=== PATIENT | male | born 1955 | race Caucasian/White ===

== ENCOUNTER 2021-05-10 16:44 | Inpatient (IN) | payer BC, SELFPAY ==
[2021-05-10] VITALS (7 sets, daily range): BP systolic 107–120; BP diastolic 69–76; PULSE 59–85; RESP 20–22; TEMP 36.9–37.9; O2SAT 89–94
--- NOTE | ~2021-05-10 | XR_ITS ---
EXAMINATION: XR chest 1V portable DATE: 05/10/2021 17:20 INDICATION: COVID-19 pneumonia. TECHNIQUE: A single frontal view of the chest was obtained. COMPARISON: Chest single view 12/17/2007 FINDINGS: There are patchy airspace opacities in all lung zones bilaterally. No pleural effusion or p neumothorax. The heart size is normal. IMPRESSION: 1. Diffuse lung disease, consistent with COVID-19 pneumonia. Reviewed, dictated and finalized at location A.
--- NOTE | ~2021-05-10 | CT_ITS ---
EXAMINATION: CTA chest PE protocol EXAM DATE: 05/17/2021 12:49 INDICATION: Shortness of breath. COVID. TECHNIQUE: Spiral CTA of the chest (pulmonary arteries) was performed with 100 cc Omnipaque 350 intr avenous contrast injection. Images were acquired during the pulmonary arterial phase. Coronal maxi mum intensity projection 3D-reconstructions were created by the technologist on dedicated workstation . Axial, coronal and sagittal reformatted images were reviewed. The dose-length product (DLP) for t his examination was 943.95 mGy-cm. The exposure was tailored according to patient size (auto mA exp osure control), and iterative reconstruction (ASIR) was used as additional dose reduction technique. Correlation is made to chest x-ray 05/05/2013. FINDINGS: Pulmonary arteries are well opacified and without intraluminal filling defects. No thora cic aortic dissection. Diffuse bilateral airspace disease, groundglass opacity and also regions of c onfluence, appearance is consistent with acute to subacute COVID pneumonia. There are no pleural or pericardial effusions. Tracheobronchial tree is patent. There is no mediastinal, hilar or axillar y lymphadenopathy. There is no pneumothorax. Heart normal in size. No evidence of coronary lainey rial calcification. Upper abdomen is unremarkable. Patient has diffuse idiopathic skeletal hyperos tosis (DISH). IMPRESSION: 1. Diffuse airspace disease consistent with acute to subacute COVID pneumonia. 2. No pulmonary emboli. Reviewed, dictated and finalized at location B.
--- NOTE | ~2021-05-10 | XR_ITS ---
EXAMINATION: XR chest 1V portable EXAM DATE: 05/15/2021 05:42 INDICATION: Shortness of breath. TECHNIQUE: Portable AP frontal chest x-ray was obtained. Comparison is made to prior examination from 05/10/2021. FINDINGS: Progression of moderate amount of airspace disease, appearance is consistent with COVID pne umonia. No pneumothorax or pleural effusion. Cardiomediastinal silhouette is normal. Cardiomediastina l silhouette is normal. Some air-filled colon below the diaphragm. Thoracic spondylosis. IMPRESSION: 1. Diffuse COVID pneumonia. Reviewed, dictated and finalized at location A. IMPRESSION: 1. Diffuse COVID pneumonia.
--- NOTE | 2021-05-10 16:48 | ECG_ITS ---
Measurements Intervals [place] Rate: 72 P: 49 [place]: 157 QRS: -18 QRSD: 94 T: 6 QT: 395 QTc: 433 Interpretive Statements SINUS RHYTHM DELAYED PRECORDIAL R/S TRANSITION NONSPECIFIC T-WAVE ABNORMALITY- INFERIOR LEADS BASELINE ARTIFACT- I, II, III, AVR, AVL, AVF, V3 BORDERLINE ECG Electronically Signed On 05-11-2021 5:18:05 CDT by Jason Mejia D.O.
--- NOTE | 2021-05-10 16:51 | ED.GENADULT ---
HPI - General Adult General Chief complaint: Weakness Stated complaint: WEAKNESS, COUGH, COVID +~9 DAYS AGO Time Seen by Provider: 05/10/21 16:47 Source: patient History of Present Illness HPI narrative: Patient is a 65 y/o male complaining SOB, weakness, nausea and diarrhea for several days. Movement seems to make his symptoms worse. He has no fever or chest pain. He tested positive for COVID 8 days ago. Related Data Home Medications Medication Instructions Recorded Confirmed Dialyvite Vitamin D 1 cap PO DAILY 05/10/21 05/10/21 amlodipine 5 mg PO DAILY 05/10/21 05/11/21 ascorbic acid (vitamin C) 500 mg PO DAILY 05/10/21 05/11/21 folic acid 400 mcg PO DAILY 05/10/21 05/10/21 lisinopril-hydrochlorothiazide 1 tablet PO DAILY 05/10/21 05/10/21 Allergies Allergy/AdvReac Type Severity Reaction Status Date / Time No Known Allergies Allergy Mild Verified 05/10/21 16:48 Review of Systems Constitutional: Constitutional: Denies chills, Denies fever(s), Denies headache(s) and Reports weakness Eyes: Eyes: Denies blurry vision ENT: Denies headache(s) and Denies neck pain Cardiovascular: Cardiovascular: Denies chest pain and Denies dyspnea Respiratory: Respiratory: Reports cough and Reports dyspnea Gastrointestinal: Gastrointestinal: Denies abdominal pain, Reports diarrhea, Reports nausea and Denies vomiting Genitourinary: Genitourinary: Denies hematuria and Denies dysuria Musculoskeletal: Musculoskeletal: Denies back pain and Denies neck pain Neurologic: Denies headache(s) and Denies weakness FORMERLY [facility], 1928–1983 Past Medical History Medical History (Updated 05/11/21 @ 16:34 by Gemma Bhardwaj MD) Hypertension Obstructive sleep apnea Surgical History Surgical History (Updated 05/10/21 @ 23:21 by Lolis Tirado PA-C) History of inguinal hernia repair Family History Family History (Updated 05/10/21 @ 23:21 by Lolis Tirado PA-C) Other Hypertension Social History Social History (Updated 05/10/21 @ 23:22 by Lolis Tirado PA-C) Social History: The patient is and lives with his in [place]. They have grown children without significant medical problems. 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 Lifelong nonsmoker. No alcohol or illicit substance abuse. He designates his , Fadumo Sevilla, as his surrogate decision maker and he wishes to be a full code. Exam Const: General: no acute distress and well developed Orientation/consciousness: oriented to person, oriented to place, oriented to time and patient oriented x3 HENMT: Head: normocephalic Ears: external ears normal General nose exam: Normal external nose present Eyes: General: appearance normal, both eyes and all related structures Conjunctivae: conjunctivae normal Neck: Neck: normal visual inspection and full ROM Chest: Chest palpation & inspection: normal inspection of the chest and no tenderness Resp: Effort & Inspection: normal respiratory effort Auscultation: clear to auscultation bilaterally Cardio: Rate: regular rate Rhythm: regular rhythm GI: GI Palp: No abdominal tenderness and Yes Soft to palpation Skin: General skin exam: normal color and turgor normal Neuro: General: oriented to person, oriented to place, oriented to time and patient oriented x3 Cognition (Neuro): normal cognition Extrem: General: normal to inspection, full ROM and no pedal edema Psych: Appearance: grossly normal Mental Status: mental status grossly normal Affect: normal affect Course Consultations Consultation #1: Discussed with KERRI Danielle, who agrees to admit. Date: 05/10/21 Time: 17:45 Vital Signs Vital signs: Vital Signs Temperature 37.9 C H 05/10/21 16:44 Pulse Rate 70 05/10/21 16:44 Respiratory Rate 22 H 05/10/21 16:44 Blood Pressure 115/76 05/10/21 16:44 Pulse Oximetry 89 L 05/10/21 16:44 Temperature 37.1 C 05/11/21 16:00 Pulse Rate 87 05/11/21 16:00 Respiratory Rate 16 05/11/21 16:00
[2021-05-10 17:03] LABS: Basophils Percent Auto 0.2 % (0.2-1.2); Hematocrit 41.6 % (42.0-52.0); Hemoglobin 14.7 g/dL (14.0-18.0); Immature Granulocyte Absolute 0.02 K/mm3 (0.00-0.031); Immature Granulocyte Percent A 0.3 % (0-0.5); Lymphocytes Absolute Auto 0.85 K/mm3 (0.9-3.2); Lymphocytes Percent Auto 12.9 % (18.3-44.2); Mean Corpuscular HGB Conc 35.3 g/dl (32-36); Mean Corpuscular Hemoglobin 30.9 pg (26-34); Mean Corpuscular Volume 87.4 fl (80-100); Mean Platelet Volume 12.3 fl (7.4-10.4); Monocytes Absolute Auto 0.5 K/mm3 (0.1-0.6); Monocytes Percent Auto 7.1 % (2.6-8.5); Neutrophils Absolute Auto 5.2 K/mm3 (1.3-6.7); Neutrophils Percent Auto 79.5 % (45.5-73.1); Platelet Count Result 126 k/mm3 (150-375); Red Blood Count 4.76 M/mm3 (4.6-6.20); Red Cell Distribution Width 11.9 % (11.5-14.5); White Blood Count 6.6 K/mm3 (4.5-10.0)
[2021-05-10 17:10] LABS: Alanine Aminotransferase 24 U/L (4-50); Albumin Level 3.8 g/dL (3.5-5.1); Alkaline Phosphatase 72 U/L (38-126); Anion Gap 8 mmol/L (8-16); Aspartate Amino Transferase 53 U/L (17-59); Bilirubin,Total 1.2 mg/dL (0.2-1.3); Blood Urea Nitrogen 23 mg/dL (9-20); Calcium 8.3 mg/dL (8.4-10.2); Carbon Dioxide 23 mmol/L (22-30); Chloride 100 mmol/L (98-107); Estimated CRCL calculation 75 ml/min; Estimated Glomerular Filt Rate > 60; Glucose 132 mg/dL (65-110); Sodium 131 mmol/L (137-145)
[2021-05-10] MEDS: DEXAMETHASONE SOD PHOS INJ 4 MG/ML VIAL 6 MG IV PUSH (17:27)
[2021-05-10] MEDS: SODIUM CHLORIDE 0.9% IV 1,000 ML 999 ML IV CONT (17:27)
[2021-05-10] MEDS: ONDANSETRON INJ 4 MG/2 ML VIAL IV PUSH (17:27)
--- NOTE | 2021-05-10 17:38 | PC.NURSE ---
Spoke with Calixto Sevilla 9(son) to give update. [phone]
[2021-05-10 17:49] LABS: Prothrombin Time 12.7 Seconds (11.1-14.7)
[2021-05-10] MEDS: REMDESIVIR 200 MG/NS 250 ML 200 MG/250 ML BAG 250 MG IVPB (18:50)
[2021-05-10 19:40] LABS: Add Urine Microscopic? YES; Appearance Urine Clear (Clear); Bacteria Urine Trace /hpf; Bilirubin Urine Negative (Negative); Blood Urine 1+ (Negative); Color Urine Yellow (Yellow); Glucose Urine UA Negative (Negative); Ketones Urine Negative (Negative); Leukocyte Esterase Ur Negative LEU/UL (Negative); Mucus Urine Rare /lpf; Nitrate Urine Negative (Negative); Protein Urine 2+ mg/dL (Negative); RBC Urine 0-2 /hpf (0-2); Specific Grav Ur 1.021 (1.001-1.035); Squamous Epithelial Cell Urine Rare /hpf (Few); Urobilinogen Urine Negative mg/dL (<2.0); WBC Urine 0-3 /hpf
--- NOTE | 2021-05-10 20:30 | PM.IMHP ---
H&P: HPI History of Present Illness Date/Time: 05/10/21 20:30 <Lolis Tirado PA-C - Last Filed: 05/10/21 23:30> Chief Complaint: COVID positive, weak, diarrhea. <Lolis Tirado PA-C - Last Filed: 05/10/21 23:30> Narrative: This is a pleasant 65-year-old male with hypertension who presented to the emergency department earlier today via private vehicle from home for evaluation of weakness and diarrhea, the patient is COVID positive. He tested positive for COVID 19 on 05/03/2021 and has had symptoms to include fever, body aches, nausea with poor oral intake, diarrhea, mild cough, and shortness of breath. The last couple of days he has felt quite weak due to ongoing diarrhea and poor oral intake due to severe nausea. On arrival to the emergency department he was mildly hypoxic with an SpO2 of 89% on room air and his chest x-ray showed diffuse lung disease consistent with COVID pneumonia. He is being admitted in this setting. At the time my evaluation he reports feeling somewhat better with oxygen and IV fluids. He continues to have low-grade fevers. No hyposmia or dysgeusia, otalgia, odynophagia, chest pain, pleuritic pain, or vomiting. He did not receive a COVID vaccination. <Lolis Tirado PA-C - Last Filed: 05/10/21 23:30> Review of Systems Review of Systems: Twelve systems were reviewed with pertinent positives and negatives as per HPI. Except as documented, all other systems were reviewed and are negative. <Lolis Tirado PA-C - Last Filed: 05/10/21 23:30> [facility] Past Medical History Medical History: Medical History (Updated 05/11/21 @ 16:34 by Gemma Bhardwaj MD) Hypertension Obstructive sleep apnea <Lolis Tirado PA-C - Last Filed: 05/10/21 23:30> Surgical History Surgical History: Surgical History (Updated 05/10/21 @ 23:21 by Lolis Tirado PA-C) History of inguinal hernia repair <Lolis Tirado PA-C - Last Filed: 05/10/21 23:30> Family History Family History: Family History (Updated 05/10/21 @ 23:21 by Lolis Tirado PA-C) Other Hypertension <Lolis Tirado PA-C - Last Filed: 05/10/21 23:30> Social History Social History: Social History (Updated 05/10/21 @ 23:22 by Lolis Tirado PA-C) Social History: The patient is and lives with his in [place]. They have grown children without significant medical problems. 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 Lifelong nonsmoker. No alcohol or illicit substance abuse. He designates his , Fadumo Sevilla, as his surrogate decision maker and he wishes to be a full code. Spiritual care concerns: No <Lolis Tirado PA-C - Last Filed: 05/10/21 23:30> Meds Home Medications and Allergies Home medications: Home Medications Medication Instructions Recorded Confirmed Type Dialyvite Vitamin D 1 cap PO DAILY 05/10/21 05/10/21 History amlodipine 5 mg PO DAILY 05/10/21 05/11/21 History ascorbic acid (vitamin C) 500 mg PO DAILY 05/10/21 05/11/21 History folic acid 400 mcg PO DAILY 05/10/21 05/10/21 History lisinopril-hydrochlorothiazide 1 tablet PO DAILY 05/10/21 05/10/21 History <Lolis Tirado PA-C - Last Filed: 05/10/21 23:30> Allergies/Adverse reactions: Allergies Allergy/AdvReac Type Severity Reaction Status Date / Time No Known Allergies Allergy Mild Verified 05/10/21 16:48 <Lolis Tirado PA-C - Last Filed: 05/10/21 23:30> Vital Signs Vital Signs - 24 hr 05/10/21 16:44 05/10/21 17:00 05/10/21 17:29 Temperature 100.2 F H Pulse Rate 70 66 Respiratory Rate 22 H 20 Blood Pressure 115/76 109/75 Pulse Oximetry 89 L 94 94 05/10/21 18:00 05/10/21 19:19 05/10/21 20:00 Temperature 98.5 F Pulse Rate 67 85 61 Respiratory Rate 20 20 20 Blood Pressure 110/69 107/73 120/75 Pulse Oximetry 93 92 93 <Lolis Tirado PA-C - Last Filed: 05/10/21 23:30> Exam Narrative: General: Well-developed, mild
[2021-05-11] VITALS (19 sets, daily range): BP systolic 105–123; BP diastolic 63–74; PULSE 49–87; RESP 14–24; TEMP 36.3–37.3; O2SAT 88–93
[2021-05-11] MEDS: SODIUM CHLORIDE 0.9% IV 1,000 ML 100 ML IV CONT (00:33)
[2021-05-11 06:51] LABS: Hematocrit 39.8 % (42.0-52.0); Hemoglobin 13.7 g/dL (14.0-18.0); Mean Corpuscular HGB Conc 34.4 g/dl (32-36); Mean Corpuscular Hemoglobin 31.1 pg (26-34); Mean Corpuscular Volume 90.2 fl (80-100); Mean Platelet Volume 12.5 fl (7.4-10.4); Platelet Count Result 113 k/mm3 (150-375); Red Blood Count 4.41 M/mm3 (4.6-6.20); Red Cell Distribution Width 12.1 % (11.5-14.5)
[2021-05-11 07:07] LABS: Alanine Aminotransferase 22 U/L (4-50); Albumin Level 3.4 g/dL (3.5-5.1); Alkaline Phosphatase 57 U/L (38-126); Anion Gap 6 mmol/L (8-16); Aspartate Amino Transferase 45 U/L (17-59); Blood Urea Nitrogen 24 mg/dL (9-20); CRP 5.9 mg/dL (<1.0); Carbon Dioxide 24 mmol/L (22-30); Chloride 101 mmol/L (98-107); Estimated CRCL calculation 89 ml/min; Estimated Glomerular Filt Rate > 60; Glucose 147 mg/dL (65-110); Lactate Dehydrogenase 881 U/L (313-618); Potassium 4.2 mmol/L (3.4-5.0); Sodium 131 mmol/L (137-145)
--- NOTE | 2021-05-11 07:29 | ADMGEN ---
This patient, Erasmo Sevilla, was admitted to 3 Med Surg Room 325-01. Patient/family oriented to hospital policies and general routines including ID bracelet, bed and alarms, visiting hours, pain management, procedures, bathroom and other care routines, personal items, smoking policy, room service/diet, and visiting hours. Information on how to activate the Rapid Response Team has been discussed. Patient/Family are encouraged to report perceived risks to care and to ask questions if they do not understand what they are told or what they should do. Patient stated medication from his memory. He was assisted from his bed the first time he went to the . Though he tolerated activity well, he did c/o SOB. We discussed medications and the use of antivirals. He appeared to be a good historian when discussing medical hx. All current treatments, tests, and medications were discussed.
[2021-05-11] MEDS: ALBUTEROL SULFATE NEB 2.5 MG/0.5 ML INH 5 MG INHALATION ×3 (08:54→21:44)
[2021-05-11] MEDS: ENOXAPARIN 40 MG/0.4 ML SYRINGE SUB-Q (10:52)
[2021-05-11] MEDS: amLODIPine BESYLATE 5 MG TABLET PO (10:53)
[2021-05-11] MEDS: guaiFENesin 12 HR 600 MG TABCR PO ×2 (10:53→19:49)
[2021-05-11] MEDS: FOLIC ACID 0.4 MG TABLET PO (10:53)
[2021-05-11] MEDS: DEXAMETHASONE SOD PHOS INJ 4 MG/ML VIAL 6 MG IV PUSH (10:53)
[2021-05-11] MEDS: LOPERAMIDE HCL 2 MG CAPSULE PO (10:53)
[2021-05-11] MEDS: lisinopriL 20 MG TABLET PO (10:54)
[2021-05-11] MEDS: ASCORBIC ACID 500 MG TABLET PO (10:54)
[2021-05-11] MEDS: ONDANSETRON INJ 4 MG/2 ML VIAL IV PUSH (11:22)
--- NOTE | 2021-05-11 15:51 | PM.IMPN ---
Progress Note: A&P Assessment and Plan (1) Pneumonia due to COVID-19 virus: Code(s): U07.1 - COVID-19; J12.82 - Pneumonia due to coronavirus disease 2019 Status: Acute Assessment and Plan: Continue remdesivir and dexamethasone Oxygen by nasal cannula, wean as tolerated (2) Hypoxia: Code(s): R09.02 - Hypoxemia Status: Acute Assessment and Plan: Mild hypoxia secondary to diffuse pneumonia on chest x-ray. Pulmonary embolism less likely by history, Wells score is 0. Wean oxygen as tolerated. (3) Hypertension: Code(s): I10 - Essential (primary) hypertension Status: Acute Assessment and Plan: Blood pressures were reviewed and they are stable. Thiazide diuretic on hold at this time as he is a bit dry. Continue to monitor. (4) Obstructive sleep apnea: Code(s): G47.33 - Obstructive sleep apnea (adult) (pediatric) Status: Acute Assessment and Plan: CPAP will be provided for the patient to use while hospitalized. Additional Plan Noted he has some trouble sleeping, and this is a problem at home as well. Has tried Benadryl does not work. Will try zolpidem tonight. Time Spent With Patient Time with patient: less than 15 minutes Subjective Date/time seen: 05/11/21 15:51 Resting comfortably in a chair. No chest pain. Continues to have shortness of breath, requiring oxygen even while sitting down. Review of Systems Review of Systems: All systems reviewed & are unremarkable except as noted in HPI and below Exam Const: General: no acute distress Neck: Neck: no JVD Resp: Other: Some crackles in all lung flor Cardio: Rate: regular rate Rhythm: regular rhythm GI: GI Palp: Yes Soft to palpation and No Tenderness to palpation present (GI) Objective Data Vital Signs Vital Signs: Vital Signs - 24 hr 05/10/21 16:44 05/10/21 17:00 05/10/21 17:29 Temperature 100.2 F H Pulse Rate 70 66 Respiratory Rate 22 H 20 Blood Pressure 115/76 109/75 Pulse Oximetry 89 L 94 94 05/10/21 18:00 05/10/21 19:19 05/10/21 20:00 Temperature 98.5 F Pulse Rate 67 85 61 Respiratory Rate 20 20 20 Blood Pressure 110/69 107/73 120/75 Pulse Oximetry 93 92 93 05/10/21 23:58 05/11/21 00:00 05/11/21 03:00 Temperature 97.8 F Pulse Rate 59 L 60 60 Respiratory Rate 20 Blood Pressure 105/66 Pulse Oximetry 93 05/11/21 04:00 05/11/21 08:00 05/11/21 08:06 Temperature 97.4 F L 98.3 F Pulse Rate 59 L 58 L 49 L Respiratory Rate 20 16 Blood Pressure 111/67 123/63 Pulse Oximetry 93 90 05/11/21 08:54 05/11/21 09:06 05/11/21 09:51 Temperature Pulse Rate 61 66 Respiratory Rate 20 20 Blood Pressure Pulse Oximetry 88 L 88 L 93 05/11/21 12:00 05/11/21 15:07 05/11/21 15:20 Temperature 99.1 F Pulse Rate 66 67 70 Respiratory Rate 14 20 24 H Blood Pressure 119/74 Pulse Oximetry 90 Intake/Output Intake/Output: Intake & Output 05/08/21 05/09/21 05/10/21 05/11/21 23:59 23:59 23:59 23:59 Intake Total 1250 1290 Balance 1250 1290 Meds/Results Medications: Active Medications Generic Name Dose Route Start Last Admin Trade Name Freq PRN Reason Stop Dose Admin Albuterol 5 mg 05/11/21 02:00 05/11/21 15:06 Albuterol Sulfate Neb 2.5 Mg/0.5 Ml Inh INHALATION 5 mg Q6HRT SYDNEY Administration Amlodipine Besylate 5 mg 05/11/21 09:00 05/11/21 10:53 Amlodipine Besylate 5 Mg Tablet PO 5 mg DAILY SYDNEY Administration Ascorbic Acid 500 mg 05/11/21 09:00 05/11/21 10:54 Ascorbic Acid 500 Mg Tablet PO 06/10/21 08:59 500 mg DAILY SYDNEY Administration Dexamethasone Sodium Phosphate 6 mg 05/11/21 09:00 05/11/21 10:53 Dexamethasone Sod Phos Inj 4 Mg/Ml Vial IV PUSH 05/20/21 09:01 6 mg DAILY SYDNEY Administration Enoxaparin Sodium 40 mg 05/11/21 09:00 05/11/21 10:52 Enoxaparin 40 Mg/0.4 Ml Syringe SUB-Q 40 mg DAILY SYDNEY Administration Folic Acid 0.4 mg 05/11/21 09:00 0
[2021-05-11] MEDS: REMDESIVIR 100 MG/NS 250 ML 100 MG/250 ML BAG 250 MG IVPB (19:49)
[2021-05-12] VITALS (15 sets, daily range): BP systolic 122–133; BP diastolic 64–78; PULSE 61–107; RESP 15–22; TEMP 35.8–37.1; O2SAT 90–95
[2021-05-12] MEDS: ALBUTEROL SULFATE NEB 2.5 MG/0.5 ML INH 5 MG INHALATION ×4 (03:51→14:07)
[2021-05-12 06:57] LABS: Hematocrit 37.4 % (42.0-52.0); Hemoglobin 12.6 g/dL (14.0-18.0); Immature Granulocyte Absolute 0.02 K/mm3 (0.00-0.031); Immature Granulocyte Percent A 0.3 % (0-0.5); Lymphocytes Absolute Auto 0.41 K/mm3 (0.9-3.2); Lymphocytes Percent Auto 6.8 % (18.3-44.2); Mean Corpuscular HGB Conc 33.7 g/dl (32-36); Mean Corpuscular Hemoglobin 30.2 pg (26-34); Mean Corpuscular Volume 89.7 fl (80-100); Mean Platelet Volume 11.9 fl (7.4-10.4); Monocytes Absolute Auto 0.7 K/mm3 (0.1-0.6); Monocytes Percent Auto 10.9 % (2.6-8.5); Platelet Count Result 141 k/mm3 (150-375); Red Blood Count 4.17 M/mm3 (4.6-6.20); Red Cell Distribution Width 12.1 % (11.5-14.5); White Blood Count 6.1 K/mm3 (4.5-10.0)
[2021-05-12 07:07] LABS: Prothrombin Time 13.2 Seconds (11.1-14.7)
[2021-05-12 07:17] LABS: Alanine Aminotransferase 24 U/L (4-50); Albumin Level 3.3 g/dL (3.5-5.1); Alkaline Phosphatase 57 U/L (38-126); Anion Gap 9 mmol/L (8-16); Aspartate Amino Transferase 46 U/L (17-59); Bilirubin,Total 0.9 mg/dL (0.2-1.3); Blood Urea Nitrogen 30 mg/dL (9-20); Calcium 8.3 mg/dL (8.4-10.2); Carbon Dioxide 22 mmol/L (22-30); Chloride 103 mmol/L (98-107); Estimated CRCL calculation 81 ml/min; Estimated Glomerular Filt Rate > 60; Glucose 163 mg/dL (65-110); Magnesium 2.2 mg/dL (1.6-2.3); Phosphorus 4.3 mg/dL (2.5-4.5); Potassium 3.7 mmol/L (3.4-5.0); Sodium 134 mmol/L (137-145)
[2021-05-12] MEDS: LOPERAMIDE HCL 2 MG CAPSULE PO (09:48)
[2021-05-12] MEDS: guaiFENesin 12 HR 600 MG TABCR PO ×2 (09:48→20:15)
[2021-05-12] MEDS: lisinopriL 20 MG TABLET PO (09:48)
[2021-05-12] MEDS: FOLIC ACID 0.4 MG TABLET PO (09:49)
[2021-05-12] MEDS: DEXAMETHASONE SOD PHOS INJ 4 MG/ML VIAL 6 MG IV PUSH (09:49)
[2021-05-12] MEDS: amLODIPine BESYLATE 5 MG TABLET PO (09:49)
[2021-05-12] MEDS: ENOXAPARIN 40 MG/0.4 ML SYRINGE SUB-Q (09:49)
[2021-05-12] MEDS: ASCORBIC ACID 500 MG TABLET PO (09:49)
--- NOTE | 2021-05-12 12:46 | PM.IMPN ---
Progress Note: A&P Assessment and Plan (1) Pneumonia due to COVID-19 virus: Code(s): U07.1 - COVID-19; J12.82 - Pneumonia due to coronavirus disease 2019 Status: Acute Assessment and Plan: Continue remdesivir and dexamethasone Oxygen by nasal cannula, wean as tolerated Went up from 5 to 6 L, discussed with him next step would be high-flow nasal cannula also discussed this we followed by BiPAP, which he is okay with, and this would be followed by intubation, which he will discuss with his before making a decision about. (2) Hypoxia: Code(s): R09.02 - Hypoxemia Status: Acute Assessment and Plan: Mild hypoxia secondary to diffuse pneumonia on chest x-ray. Pulmonary embolism less likely by history, Wells score is 0. Wean oxygen as tolerated. (3) Hypertension: Code(s): I10 - Essential (primary) hypertension Status: Acute Assessment and Plan: Blood pressures were reviewed and they are stable. Thiazide diuretic on hold at this time as he is a bit dry. Continue to monitor. (4) Obstructive sleep apnea: Code(s): G47.33 - Obstructive sleep apnea (adult) (pediatric) Status: Acute Assessment and Plan: CPAP will be provided for the patient to use while hospitalized. Additional Plan Discussed COVID course with patient, feels like he has taken a step back in the last day, as he is now requiring 6 L compared to 5 L yesterday. Still no fever, cough, chest pain. Discussed next step in oxygen supplementation would be high flow, which he is open to. Also encouraged patient to consider and discuss with option of mechanical ventilation if that need arises. For the time being will keep full code. Time Spent With Patient Time with patient: less than 15 minutes Subjective Date/time seen: 05/12/21 12:46 According to patient, feels like he has taken a step back over the last day. Although he has no chest pain or shortness of breath at rest, after walking around he becomes winded, and then needs to go up from 5 to 6 L to feel better. No cough, fever or chills. Review of Systems Review of Systems: All systems reviewed & are unremarkable except as noted in HPI and below Exam Const: General: no acute distress Neck: Neck: no JVD Resp: Effort & Inspection: normal respiratory effort Auscultation: clear to auscultation bilaterally Cardio: Rate: regular rate Rhythm: regular rhythm GI: GI Palp: Yes Soft to palpation and No Tenderness to palpation present (GI) Objective Data Vital Signs Vital Signs: Vital Signs - 24 hr 05/11/21 14:00 05/11/21 15:07 05/11/21 15:20 Temperature Pulse Rate 65 67 70 Respiratory Rate 20 24 H Blood Pressure Pulse Oximetry 05/11/21 16:00 05/11/21 18:11 05/11/21 20:00 Temperature 98.8 F 98.6 F Pulse Rate 87 74 63 Respiratory Rate 16 22 H Blood Pressure 119/66 115/73 Pulse Oximetry 90 92 05/11/21 21:44 05/11/21 21:45 05/11/21 22:00 Temperature Pulse Rate 65 64 59 L Respiratory Rate 22 H Blood Pressure Pulse Oximetry 92 05/11/21 22:07 05/12/21 00:00 05/12/21 02:00 Temperature 98.3 F Pulse Rate 63 107 H 67 Respiratory Rate 20 20 Blood Pressure 125/78 Pulse Oximetry 95 05/12/21 03:03 05/12/21 04:00 05/12/21 08:00 Temperature 98.8 F 96.5 F L Pulse Rate 62 75 64 Respiratory Rate 20 22 H 18 Blood Pressure 129/64 122/70 Pulse Oximetry 91 90 05/12/21 08:16 05/12/21 08:26 05/12/21 11:55 Temperature 96.7 F L Pulse Rate 68 68 72 Respiratory Rate 20 20 16 Blood Pressure 129/72 Pulse Oximetry 91 93 Intake/Output Intake/Output: Intake & Output 05/09/21 05/10/21 05/11/21 05/12/21 23:59 23:59 23:59 23:59 Intake Total 1250 2184 390 Balance 1250 2184 390 Meds/Results Medications: Active Medications Generic Name Dose Route Start Last Admin Trade Name Nimaq PRN Reason Stop Dose Admin Albuterol 5 mg 05/11/21 02:00 05/12/21 08:16
[2021-05-12] MEDS: REMDESIVIR 100 MG/NS 250 ML 100 MG/250 ML BAG 250 MG IVPB (20:16)
[2021-05-13] VITALS (20 sets, daily range): BP systolic 115–140; BP diastolic 59–87; PULSE 57–76; RESP 16–22; TEMP 35.8–36.8; O2SAT 83–96
[2021-05-13] MEDS: ALBUTEROL SULFATE (*SP) INHALER 2 PUFF INHALATION ×4 (03:27→20:39)
[2021-05-13 06:56] LABS: Basophils Percent Auto 0.1 % (0.2-1.2); Hematocrit 37.1 % (42.0-52.0); Hemoglobin 12.8 g/dL (14.0-18.0); Immature Granulocyte Absolute 0.04 K/mm3 (0.00-0.031); Immature Granulocyte Percent A 0.5 % (0-0.5); Lymphocytes Absolute Auto 0.65 K/mm3 (0.9-3.2); Lymphocytes Percent Auto 8.8 % (18.3-44.2); Mean Corpuscular HGB Conc 34.5 g/dl (32-36); Mean Corpuscular Hemoglobin 30.7 pg (26-34); Mean Platelet Volume 11.4 fl (7.4-10.4); Monocytes Absolute Auto 0.7 K/mm3 (0.1-0.6); Monocytes Percent Auto 9.1 % (2.6-8.5); Neutrophils Percent Auto 81.5 % (45.5-73.1); Platelet Count Result 172 k/mm3 (150-375); Red Blood Count 4.17 M/mm3 (4.6-6.20); Red Cell Distribution Width 12.1 % (11.5-14.5); White Blood Count 7.4 K/mm3 (4.5-10.0)
[2021-05-13 07:04] LABS: INR 1.1; Prothrombin Time 13.6 Seconds (11.1-14.7)
[2021-05-13 07:18] LABS: Alanine Aminotransferase 27 U/L (4-50); Albumin Level 3.5 g/dL (3.5-5.1); Alkaline Phosphatase 56 U/L (38-126); Anion Gap 6 mmol/L (8-16); Aspartate Amino Transferase 43 U/L (17-59); Bilirubin,Total 1.2 mg/dL (0.2-1.3); Blood Urea Nitrogen 29 mg/dL (9-20); Calcium 8.5 mg/dL (8.4-10.2); Carbon Dioxide 23 mmol/L (22-30); Chloride 104 mmol/L (98-107); Estimated CRCL calculation 89 ml/min; Estimated Glomerular Filt Rate > 60; Glucose 132 mg/dL (65-110); Magnesium 2.2 mg/dL (1.6-2.3); Phosphorus 4.1 mg/dL (2.5-4.5); Potassium 4.1 mmol/L (3.4-5.0); Sodium 133 mmol/L (137-145)
[2021-05-13] MEDS: FOLIC ACID 0.4 MG TABLET PO (08:38)
[2021-05-13] MEDS: guaiFENesin 12 HR 600 MG TABCR PO ×2 (08:38→20:32)
[2021-05-13] MEDS: lisinopriL 20 MG TABLET PO (08:39)
[2021-05-13] MEDS: amLODIPine BESYLATE 5 MG TABLET PO (08:39)
[2021-05-13] MEDS: ASCORBIC ACID 500 MG TABLET PO (08:39)
[2021-05-13] MEDS: DEXAMETHASONE SOD PHOS INJ 4 MG/ML VIAL 6 MG IV PUSH (08:40)
[2021-05-13] MEDS: ENOXAPARIN 40 MG/0.4 ML SYRINGE SUB-Q (08:40)
--- NOTE | 2021-05-13 09:03 | PM.IMPN ---
Progress Note: A&P Assessment and Plan (1) Pneumonia due to COVID-19 virus: Code(s): U07.1 - COVID-19; J12.82 - Pneumonia due to coronavirus disease 2019 Status: Acute Assessment and Plan: Continue remdesivir and dexamethasone Oxygen by nasal cannula, wean as tolerated Went up from 5 to 6 L, discussed with him next step would be high-flow nasal cannula also discussed this we followed by BiPAP, which he is okay with, and this would be followed by intubation, which he will discuss with his before making a decision about. Brief episode of desaaturation 05/13 am when patient over-exerted himself in room; Saturating mid 90s on 6L, encouraged to minimize exertion as much as possible. OK as he is on DVT ppx. Still discussing intubation if needed with family. As of now, still full code. (2) Hypoxia: Code(s): R09.02 - Hypoxemia Status: Acute Assessment and Plan: Mild hypoxia secondary to diffuse pneumonia on chest x-ray. Pulmonary embolism less likely by history, Wells score is 0. Wean oxygen as tolerated. (3) Hypertension: Code(s): I10 - Essential (primary) hypertension Status: Acute Assessment and Plan: Blood pressures were reviewed and they are stable. Thiazide diuretic on hold at this time as he is a bit dry. Continue to monitor. (4) Obstructive sleep apnea: Code(s): G47.33 - Obstructive sleep apnea (adult) (pediatric) Status: Acute Assessment and Plan: CPAP will be provided for the patient to use while hospitalized. Additional Plan Overall unchanged medical status compared to yesterday. Brief decompensation with overexertion, however saturating well and feeling comfortable on 6L. Still discussing intubation with if that need arises. Will keep full code for now, and he is willing for high flow NC and BiPap if those needs arise. Continue remdesivir and steroids, DVT ppx. Time Spent With Patient Time with patient: less than 15 minutes Subjective Date/time seen: 05/13/21 09:03 no subjective sob - did desaturate to mid 80s when walking around, however asymptomatic. Says he would like to do exercise, advised against this. Review of Systems Review of Systems: All systems reviewed & are unremarkable except as noted in HPI and below Exam Const: General: no acute distress Neck: Neck: no JVD Resp: Effort & Inspection: normal respiratory effort Auscultation: clear to auscultation bilaterally Cardio: Rate: regular rate Rhythm: regular rhythm GI: GI Palp: Yes Soft to palpation and No Tenderness to palpation present (GI) Objective Data Vital Signs Vital Signs: Vital Signs - 24 hr 05/12/21 11:55 05/12/21 12:00 05/12/21 14:07 Temperature 96.7 F L Pulse Rate 72 64 69 Respiratory Rate 16 20 Blood Pressure 129/72 Pulse Oximetry 93 05/12/21 14:15 05/12/21 16:00 05/12/21 20:00 Temperature 97.5 F L Pulse Rate 74 67 62 Respiratory Rate 20 22 H Blood Pressure 133/68 Pulse Oximetry 94 05/12/21 23:17 05/12/21 23:37 05/13/21 00:00 Temperature 97.3 F L Pulse Rate 61 63 57 L Respiratory Rate 15 20 Blood Pressure 119/73 Pulse Oximetry 95 91 94 05/13/21 03:32 05/13/21 04:00 05/13/21 07:30 Temperature 97.9 F Pulse Rate 62 63 Respiratory Rate 22 H 18 Blood Pressure 121/74 Pulse Oximetry 94 93 90 05/13/21 07:35 Temperature Pulse Rate Respiratory Rate Blood Pressure Pulse Oximetry 90 Intake/Output Intake/Output: Intake & Output 05/10/21 05/11/21 05/12/21 05/13/21 23:59 23:59 23:59 23:59 Intake Total 1250 2184 1490 450 Balance 1250 2184 1490 450 Meds/Results Medications: Active Medications Generic Name Dose Route Start Last Admin Trade Name Nimaq PRN Reason Stop Dose Admin Albuterol 2 puff 05/12/21 20:00 05/13/21 08:39 Albuterol Sulfate (*Sp) Inhaler INHALATION 2 puff Q6HRT SYDNEY Administration Amlodipine Besylate 5 mg 05/11/21 09:00 05/13/21 08:39 Amlodipi
[2021-05-13] MEDS: REMDESIVIR 100 MG/NS 250 ML 100 MG/250 ML BAG 250 MG IVPB (20:32)
[2021-05-14] VITALS (15 sets, daily range): BP systolic 108–143; BP diastolic 55–76; PULSE 54–75; RESP 20–32; TEMP 36–36.8; O2SAT 85–100; BMI 33.9
[2021-05-14] MEDS: ALBUTEROL SULFATE (*SP) INHALER 2 PUFF INHALATION ×4 (03:55→20:44)
--- NOTE | 2021-05-14 04:32 | PC.NURSE ---
This patient, Erasmo Sevilla, was transferred to [facility] on 05/14/21 at 0433 from [facility]. Personal belongings sent with patient. Report given to Chioma. Appropriate documentation sent with patient. Fadumo was informed of the change at 04:35.
--- NOTE | 2021-05-14 04:34 | PC.NURSE ---
This patient, Erasmo Sevilla, was received from [ 3rd med surg ] on 05/14/21 at 0434. Patient/family oriented to unit policies and routines
[2021-05-14 05:10] LABS: Alveolar/Arterial O2 Gradient 416.5 mmHg; Base Excess ABG -1.1 mEq/l (+/-2.0); Carboxyhemoglobin 0.3 % THb (0-2.0); Fractional Inspired Oxygen 72 %; HCO3 ABG 21.5 mEq/l (22.0-26.0); Methemoglobin ABG 0.3 %THb (0-1.5); Oxygen Content ABG 20.2 %vol (16.0-22.0); Oxygen Saturation ABG 93.9 % (95.0-100.0); Oxyhemoglobin 91.5 % THb (90.0-100.0); PCO2 ABG 30.5 mmHg (35.0-45.0); PO2 ABG 64.2 mmHg (80.0-100.0); PO2 FiO2 Ratio Arterial Blood 0.89 %; Reduced Hemoglobin 7.9 %THb (0-5.0); Total Hemoglobin 15.7 g/dL (12.0-18.0); pH ABG 7.465 (7.350-7.450)
[2021-05-14 05:12] LABS: Device HIGH FLOW THERAPY; Modified Allen's Test Pass; Site Drawn LEFT RADIAL
[2021-05-14 05:13] LABS: Basophils Percent Auto 0.1 % (0.2-1.2); Hematocrit 38.2 % (42.0-52.0); Hemoglobin 13.4 g/dL (14.0-18.0); Immature Granulocyte Absolute 0.07 K/mm3 (0.00-0.031); Immature Granulocyte Percent A 0.9 % (0-0.5); Lymphocytes Absolute Auto 0.69 K/mm3 (0.9-3.2); Lymphocytes Percent Auto 8.4 % (18.3-44.2); Mean Corpuscular HGB Conc 35.1 g/dl (32-36); Mean Corpuscular Hemoglobin 31.3 pg (26-34); Mean Corpuscular Volume 89.3 fl (80-100); Mean Platelet Volume 11.7 fl (7.4-10.4); Monocytes Absolute Auto 0.7 K/mm3 (0.1-0.6); Monocytes Percent Auto 8.6 % (2.6-8.5); Neutrophils Absolute Auto 6.7 K/mm3 (1.3-6.7); Platelet Count Result 225 k/mm3 (150-375); Red Blood Count 4.28 M/mm3 (4.6-6.20); Red Cell Distribution Width 11.9 % (11.5-14.5); White Blood Count 8.2 K/mm3 (4.5-10.0)
[2021-05-14 05:22] LABS: Prothrombin Time 13.4 Seconds (11.1-14.7)
[2021-05-14 05:25] LABS: Alanine Aminotransferase 33 U/L (4-50); Albumin Level 3.5 g/dL (3.5-5.1); Alkaline Phosphatase 61 U/L (38-126); Anion Gap 7 mmol/L (8-16); Aspartate Amino Transferase 43 U/L (17-59); Bilirubin,Total 1.4 mg/dL (0.2-1.3); Blood Urea Nitrogen 29 mg/dL (9-20); Calcium 8.5 mg/dL (8.4-10.2); Carbon Dioxide 20 mmol/L (22-30); Chloride 107 mmol/L (98-107); Estimated CRCL calculation 99 ml/min; Estimated Glomerular Filt Rate > 60; Glucose 129 mg/dL (65-110); Magnesium 2.3 mg/dL (1.6-2.3); Phosphorus 3.7 mg/dL (2.5-4.5); Potassium 3.9 mmol/L (3.4-5.0); Sodium 134 mmol/L (137-145)
[2021-05-14] MEDS: amLODIPine BESYLATE 5 MG TABLET PO (11:00)
[2021-05-14] MEDS: DEXAMETHASONE SOD PHOS INJ 4 MG/ML VIAL 6 MG IV PUSH (11:00)
[2021-05-14] MEDS: FOLIC ACID 0.4 MG TABLET PO (11:00)
[2021-05-14] MEDS: lisinopriL 20 MG TABLET PO (11:01)
[2021-05-14] MEDS: ENOXAPARIN 40 MG/0.4 ML SYRINGE SUB-Q (11:01)
[2021-05-14] MEDS: ASCORBIC ACID 500 MG TABLET PO (11:01)
[2021-05-14] MEDS: guaiFENesin 12 HR 600 MG TABCR PO ×2 (11:01→21:38)
--- NOTE | 2021-05-14 13:07 | PM.IMPN ---
Progress Note: A&P Assessment and Plan (1) Pneumonia due to COVID-19 virus: Code(s): U07.1 - COVID-19; J12.82 - Pneumonia due to coronavirus disease 2019 Status: Acute Assessment and Plan: Continue remdesivir and dexamethasone. (2) Hypoxia: Code(s): R09.02 - Hypoxemia Status: Acute Assessment and Plan: Mild hypoxia secondary to diffuse pneumonia on chest x-ray. Continue iv steroids and remdesivir and oxygen and supportive care. will order cxr tomorrow. (3) Hypertension: Code(s): I10 - Essential (primary) hypertension Status: Acute Assessment and Plan: Blood pressures were reviewed, Bp is stable. Continue to hold medications. (4) Obstructive sleep apnea: Code(s): G47.33 - Obstructive sleep apnea (adult) (pediatric) Status: Acute Assessment and Plan: CPAP will be provided for the patient to use while hospitalized. Subjective Date/time seen: 05/14/21 13:07 Interval history: 65-year-old male with hypertension, the patient is COVID positive. Started on remdesivir. Pt is coughing and sob in the room. Pt trying prone positions in the room. Review of Systems Review of Systems: All systems reviewed & are unremarkable except as noted in HPI and below Exam Const: General: no acute distress and other (Sitting up ) Resp: Effort & Inspection: normal respiratory effort Auscultation: clear to auscultation bilaterally Other: BL wheezes Cardio: Rate: regular rate Rhythm: regular rhythm Neuro: General: other (alert. oriented. ) Cognition (Neuro): normal cognition Objective Data Vital Signs Vital Signs: Vital Signs - 24 hr 05/13/21 14:58 05/13/21 16:00 05/13/21 20:00 Temperature 35.8 C L 36.4 C L Pulse Rate 72 68 Respiratory Rate 18 20 Blood Pressure 119/69 137/80 Pulse Oximetry 91 90 90 05/13/21 23:00 05/13/21 23:57 05/14/21 00:00 Temperature 36.6 C Pulse Rate 76 68 Respiratory Rate 20 Blood Pressure 115/79 Pulse Oximetry 92 94 05/14/21 04:00 05/14/21 04:45 05/14/21 04:48 Temperature 36.2 C L 36.8 C Pulse Rate 68 72 Respiratory Rate 20 22 H Blood Pressure 108/72 128/71 Pulse Oximetry 86 L 91 91 05/14/21 08:00 05/14/21 09:00 05/14/21 12:00 Temperature 36.7 C 36.0 C L Pulse Rate 66 66 Respiratory Rate 24 H 28 H Blood Pressure 143/76 H 118/68 Pulse Oximetry 92 91 95 Intake/Output Intake/Output: Intake & Output 05/11/21 05/12/21 05/13/21 05/14/21 23:59 23:59 23:59 23:59 Intake Total 2184 1740 1840 440 Balance 2184 1740 1840 440 Meds/Results Medications: Active Medications Generic Name Dose Route Start Last Admin Trade Name Freq PRN Reason Stop Dose Admin Albuterol 2 puff 05/12/21 20:00 05/14/21 09:02 Albuterol Sulfate (*Sp) Inhaler INHALATION 2 puff Q6HRT SYDNEY Administration Amlodipine Besylate 5 mg 05/11/21 09:00 05/14/21 11:00 Amlodipine Besylate 5 Mg Tablet PO 5 mg DAILY SYDNEY Administration Ascorbic Acid 500 mg 05/11/21 09:00 05/14/21 11:01 Ascorbic Acid 500 Mg Tablet PO 06/10/21 08:59 500 mg DAILY SYDNEY Administration Dexamethasone Sodium Phosphate 6 mg 05/11/21 09:00 05/14/21 11:00 Dexamethasone Sod Phos Inj 4 Mg/Ml Vial IV PUSH 05/20/21 09:01 6 mg DAILY SYDNEY Administration Enoxaparin Sodium 40 mg 05/11/21 09:00 05/14/21 11:01 Enoxaparin 40 Mg/0.4 Ml Syringe SUB-Q 40 mg DAILY SYDNEY Administration Folic Acid 0.4 mg 05/11/21 09:00 05/14/21 11:00 Folic Acid 0.4 Mg Tablet PO 0.4 mg DAILY SYDNEY Administration Guaifenesin 600 mg 05/11/21 09:00 05/14/21 11:01 Guaifenesin 12 Hr 600 Mg Tabcr PO 600 mg Q12HR SYDNEY Administration Remdesivir 100 mg in 250 mls @ 250 mls/hr 05/11/21 22:00 05/13/21 21:32 IVPB 05/14/21 22:59 Infused Q24H SYDNEY Infusion Lisinopril 20 mg 05/11/21 09:00 05/14/21 11:01 Lisinopril 20 Mg Tablet PO 20 mg QAM SYDNEY Administration Loperamide HCl 2 mg 05/10/21
[2021-05-14 13:54] LABS: CRP 2.4 mg/dL (<1.0)
[2021-05-14] MEDS: REMDESIVIR 100 MG/NS 250 ML 100 MG/250 ML BAG 250 MG IVPB (21:42)
[2021-05-15] VITALS (16 sets, daily range): BP systolic 121–160; BP diastolic 68–76; PULSE 48–88; RESP 17–32; TEMP 36.7–37.2; O2SAT 71–95
[2021-05-15] MEDS: ALBUTEROL SULFATE (*SP) INHALER 2 PUFF INHALATION ×3 (02:28→21:00)
[2021-05-15] MEDS: amLODIPine BESYLATE 5 MG TABLET PO (08:41)
[2021-05-15] MEDS: ASCORBIC ACID 500 MG TABLET PO (08:42)
[2021-05-15] MEDS: ENOXAPARIN 40 MG/0.4 ML SYRINGE SUB-Q (08:43)
[2021-05-15] MEDS: DEXAMETHASONE SOD PHOS INJ 4 MG/ML VIAL 6 MG IV PUSH (08:43)
[2021-05-15] MEDS: FOLIC ACID 0.4 MG TABLET PO (08:44)
[2021-05-15] MEDS: guaiFENesin 12 HR 600 MG TABCR PO ×2 (08:44→20:35)
[2021-05-15] MEDS: lisinopriL 20 MG TABLET PO (08:45)
--- NOTE | 2021-05-15 15:11 | PM.IMPN ---
Progress Note: A&P Assessment and Plan (1) Pneumonia due to COVID-19 virus: Code(s): U07.1 - COVID-19; J12.82 - Pneumonia due to coronavirus disease 2019 Status: Acute Assessment and Plan: Continue remdesivir and dexamethasone. CXR reviewed with patient. (2) Hypoxia: Code(s): R09.02 - Hypoxemia Status: Acute Assessment and Plan: Mild hypoxia secondary to diffuse pneumonia on chest x-ray. Continue iv steroids and remdesivir and oxygen and supportive care. (3) Hypertension: Code(s): I10 - Essential (primary) hypertension Status: Acute Assessment and Plan: Blood pressures were reviewed, Bp is slightly high can restart BP medications. (4) Obstructive sleep apnea: Code(s): G47.33 - Obstructive sleep apnea (adult) (pediatric) Status: Acute Assessment and Plan: CPAP will be provided for the patient to use while hospitalized. Subjective Date/time seen: 05/15/21 15:11 Interval history: 65-year-old male with hypertension, the patient is COVID positive. Started on remdesivir. Pt is sob in the room on high flow. Pt is sitting up in bed talkative and pleasant. Review of Systems Review of Systems: All systems reviewed & are unremarkable except as noted in HPI and below Exam Const: General: no acute distress and other (Sitting up on high flow oxygen) Resp: Effort & Inspection: normal respiratory effort Auscultation: clear to auscultation bilaterally Cardio: Rate: regular rate Rhythm: regular rhythm Neuro: General: other (alert. oriented. ) Cognition (Neuro): normal cognition Objective Data Vital Signs Vital Signs: Vital Signs - 24 hr 05/14/21 16:00 05/14/21 18:00 05/14/21 20:00 Temperature 36.8 C 36.6 C Pulse Rate 71 71 60 Respiratory Rate 32 H 22 H Blood Pressure 129/71 119/55 L Pulse Oximetry 85 L 100 05/14/21 20:45 05/14/21 22:00 05/14/21 23:40 Temperature 36.7 C Pulse Rate 61 57 L 63 Respiratory Rate 20 22 H Blood Pressure 126/66 Pulse Oximetry 92 92 05/15/21 00:00 05/15/21 02:00 05/15/21 02:29 Temperature Pulse Rate 68 65 51 L Respiratory Rate Blood Pressure Pulse Oximetry 92 71 L 05/15/21 04:00 05/15/21 05:13 05/15/21 06:00 Temperature 37.2 C Pulse Rate 59 L 64 61 Respiratory Rate 22 H 17 Blood Pressure 123/71 Pulse Oximetry 94 94 05/15/21 08:00 05/15/21 09:15 05/15/21 12:00 Temperature 37.0 C 36.8 C Pulse Rate 59 L 70 Respiratory Rate 27 H 30 H Blood Pressure 160/76 H 157/69 H Pulse Oximetry 95 92 92 05/15/21 14:35 Temperature Pulse Rate Respiratory Rate Blood Pressure Pulse Oximetry 94 Intake/Output Intake/Output: Intake & Output 05/12/21 05/13/21 05/14/21 05/15/21 23:59 23:59 23:59 23:59 Intake Total 1740 1840 690 490 Output Total 1350 350 Balance 1740 1840 -660 140 Meds/Results Medications: Active Medications Generic Name Dose Route Start Last Admin Trade Name Freq PRN Reason Stop Dose Admin Albuterol 2 puff 05/12/21 20:00 05/15/21 08:58 Albuterol Sulfate (*Sp) Inhaler INHALATION 2 puff Q6HRT SYDNEY Administration Amlodipine Besylate 5 mg 05/11/21 09:00 05/15/21 08:41 Amlodipine Besylate 5 Mg Tablet PO 5 mg DAILY SYDNEY Administration Ascorbic Acid 500 mg 05/11/21 09:00 05/15/21 08:42 Ascorbic Acid 500 Mg Tablet PO 06/10/21 08:59 500 mg DAILY SYDNEY Administration Dexamethasone Sodium Phosphate 6 mg 05/11/21 09:00 05/15/21 08:43 Dexamethasone Sod Phos Inj 4 Mg/Ml Vial IV PUSH 05/20/21 09:01 6 mg DAILY SYDNEY Administration Enoxaparin Sodium 40 mg 05/11/21 09:00 05/15/21 08:43 Enoxaparin 40 Mg/0.4 Ml Syringe SUB-Q 40 mg DAILY SYDNEY Administration Folic Acid 0.4 mg 05/11/21 09:00 05/15/21 08:44 Folic Acid 0.4 Mg Tablet PO 0.4 mg DAILY SYDNEY Administration Guaifenesin 600 mg 05/11/21 09:00 05/15/21 08:44 Guaifenesin 12 Hr 600 Mg Tabcr PO 600 mg Q12HR SYDNEY
[2021-05-16] VITALS (15 sets, daily range): BP systolic 109–133; BP diastolic 65–79; PULSE 56–81; RESP 18–32; TEMP 36.7–38.2; O2SAT 91–100
[2021-05-16] MEDS: ALBUTEROL SULFATE (*SP) INHALER 2 PUFF INHALATION ×4 (04:10→20:15)
[2021-05-16] MEDS: amLODIPine BESYLATE 5 MG TABLET PO (08:58)
[2021-05-16] MEDS: DEXAMETHASONE SOD PHOS INJ 4 MG/ML VIAL 6 MG IV PUSH (08:59)
[2021-05-16] MEDS: ASCORBIC ACID 500 MG TABLET PO (08:59)
[2021-05-16] MEDS: ENOXAPARIN 40 MG/0.4 ML SYRINGE SUB-Q (08:59)
[2021-05-16] MEDS: FOLIC ACID 0.4 MG TABLET PO (08:59)
[2021-05-16] MEDS: guaiFENesin 12 HR 600 MG TABCR PO ×2 (09:00→20:09)
[2021-05-16] MEDS: lisinopriL 20 MG TABLET PO (09:00)
[2021-05-16] MEDS: FUROSEMIDE 40 MG TABLET PO (09:00)
--- NOTE | 2021-05-16 10:24 | PM.IMPN ---
Progress Note: A&P Assessment and Plan (1) Pneumonia due to COVID-19 virus: Code(s): U07.1 - COVID-19; J12.82 - Pneumonia due to coronavirus disease 2019 Status: Acute Assessment and Plan: Continue remdesivir and dexamethasone. CXR reviewed with patient. (2) Hypoxia: Code(s): R09.02 - Hypoxemia Status: Acute Assessment and Plan: Mild hypoxia secondary to diffuse pneumonia on chest x-ray. Continue iv steroids and remdesivir and oxygen and supportive care. (3) Hypertension: Code(s): I10 - Essential (primary) hypertension Status: Acute Assessment and Plan: Blood pressures were reviewed, Bp is slightly high can restart BP medications. (4) Obstructive sleep apnea: Code(s): G47.33 - Obstructive sleep apnea (adult) (pediatric) Status: Acute Assessment and Plan: CPAP will be provided for the patient to use while hospitalized. Additional Plan 05/13/21 Continue remdesivir and dexamethasone Oxygen by nasal cannula, wean as tolerated Went up from 5 to 6 L, discussed with him next step would be high-flow nasal cannula also discussed this we followed by BiPAP, which he is okay with, and this would be followed by intubation, which he will discuss with his before making a decision about. Brief episode of desaaturation 05/13 am when patient over-exerted himself in room; Saturating mid 90s on 6L, encouraged to minimize exertion as much as possible. OK as he is on DVT ppx. Still discussing intubation if needed with family. As of now, still full code. Overall unchanged medical status compared to yesterday. Brief decompensation with overexertion, however saturating well and feeling comfortable on 6L. Still discussing intubation with if that need arises. Will keep full code for now, and he is willing for high flow NC and BiPap if those needs arise. Continue remdesivir and steroids, DVT ppx. 05/15/21 Overall unchanged medical status compared to yesterday. Brief decompensation with overexertion, however saturating well and feeling comfortable on 6L. Still discussing intubation with if that need arises. Will keep full code for now, and he is willing for high flow NC and BiPap if those needs arise. Continue remdesivir and steroids, DVT ppx. 05/16/21 Patient with acute worsening of oxygen requirements now on 60 L 93% Remdesivir Baricitinib Vitamin-C D zinc Dexamethasone b.i.d. High-flow oxygen Patient advised to prone Patient advised to drink Ensure drinks and maintain proper nutrition he is also advised against fast food Patient will discuss code status with his Subjective Date/time seen: 05/16/21 10:24 Medical records reviewed pt on 60L acutely worsening oxygen requirements. This has been reviewed with the patient as well as code status. Patient states that he would not want to be maintained on life support indefinitely but he would like to try. He will discuss with his giving her indications of how long or when she should discontinue full life support if that becomes necessary decision. Patient is advised that the cook frozen dessert physician will help guide her in her decision making and that we are outlined in our goals that we all want him to get better and go home. Exam Narrative: General: Well-developed, mildly ill-appearing male supine in bed HEENT: EOMI. Sclerae anicteric. NCAT Neck: Supple. No adenopathy or JVD. Respiratory: Respirations are even and nonlabored and he is speaking in full sentences. Currently on 60 L high-flow Scattered rales at the bases and rhonchi Cardiovascular: Regular rate and rhythm with S1-S2. Gastrointestinal: Abdomen is soft, nontender, and nondistended with positive bowel sounds. Skin: Warm and moist. Extremities: No cyanosis, clubbing, or edema. Radial and pedal pulses intact. Neurological: Alert. Cranial nerves 2-12 are grossly intact. No gross focal deficits to casual conversation. Psychiatric: Pl
[2021-05-16 11:35] LABS: Basophils Percent Auto 0.1 % (0.2-1.2); Eosinophils Absolute Auto 0.1 K/mm3 (0-0.3); Eosinophils Percent Auto 0.8 % (0-4.4); Hemoglobin 12.4 g/dL (14.0-18.0); Immature Granulocyte Percent A 1.7 % (0-0.5); Lymphocytes Absolute Auto 0.34 K/mm3 (0.9-3.2); Lymphocytes Percent Auto 2.9 % (18.3-44.2); Mean Corpuscular HGB Conc 34.4 g/dl (32-36); Mean Corpuscular Hemoglobin 31.2 pg (26-34); Mean Corpuscular Volume 90.5 fl (80-100); Mean Platelet Volume 11.2 fl (7.4-10.4); Monocytes Absolute Auto 0.4 K/mm3 (0.1-0.6); Monocytes Percent Auto 3.4 % (2.6-8.5); Neutrophils Absolute Auto 10.9 K/mm3 (1.3-6.7); Neutrophils Percent Auto 91.1 % (45.5-73.1); Platelet Count Result 246 k/mm3 (150-375); Red Blood Count 3.98 M/mm3 (4.6-6.20); Red Cell Distribution Width 11.9 % (11.5-14.5); White Blood Count 11.9 K/mm3 (4.5-10.0)
[2021-05-16 11:44] LABS: Alanine Aminotransferase 45 U/L (4-50); Estimated CRCL calculation 99 ml/min; Estimated Glomerular Filt Rate > 60
[2021-05-16 11:46] LABS: INR 1.2; Prothrombin Time 15.1 Seconds (11.1-14.7)
[2021-05-16] MEDS: BARICITINIB 2 MG TABLET 4 MG PO (13:03)
[2021-05-16] MEDS: REMDESIVIR 100 MG/NS 250 ML 100 MG/250 ML BAG 250 MG IVPB (15:10)
[2021-05-16] MEDS: ASCORBIC ACID 500 MG TABLET 1000 MG PO (18:29)
[2021-05-16] MEDS: ZINC SULFATE 220 MG CAPSULE PO (18:30)
[2021-05-17] VITALS (21 sets, daily range): BP systolic 101–131; BP diastolic 60–81; PULSE 71–90; RESP 18–24; TEMP 36.6–36.9; O2SAT 92–99; BMI 32.1
[2021-05-17] MEDS: ALBUTEROL SULFATE (*SP) INHALER 2 PUFF INHALATION ×3 (03:03→14:21)
[2021-05-17 05:14] LABS: Basophils Percent Auto 0.2 % (0.2-1.2); Eosinophils Percent Auto 0.1 % (0-4.4); Hematocrit 34.9 % (42.0-52.0); Hemoglobin 12.3 g/dL (14.0-18.0); Immature Granulocyte Absolute 0.36 K/mm3 (0.00-0.031); Immature Granulocyte Percent A 3.1 % (0-0.5); Lymphocytes Absolute Auto 0.49 K/mm3 (0.9-3.2); Lymphocytes Percent Auto 4.3 % (18.3-44.2); Mean Corpuscular HGB Conc 35.2 g/dl (32-36); Mean Corpuscular Volume 87.9 fl (80-100); Mean Platelet Volume 11.2 fl (7.4-10.4); Monocytes Absolute Auto 0.6 K/mm3 (0.1-0.6); Monocytes Percent Auto 4.9 % (2.6-8.5); Neutrophils Absolute Auto 10.1 K/mm3 (1.3-6.7); Neutrophils Percent Auto 87.4 % (45.5-73.1); Platelet Count Result 275 k/mm3 (150-375); Red Blood Count 3.97 M/mm3 (4.6-6.20); Red Cell Distribution Width 11.6 % (11.5-14.5); White Blood Count 11.5 K/mm3 (4.5-10.0)
[2021-05-17 05:24] LABS: INR 1.1; Prothrombin Time 14.1 Seconds (11.1-14.7)
[2021-05-17 05:30] LABS: Alanine Aminotransferase 43 U/L (4-50); Albumin Level 3.3 g/dL (3.5-5.1); Alkaline Phosphatase 71 U/L (38-126); Anion Gap 8 mmol/L (8-16); Aspartate Amino Transferase 29 U/L (17-59); Bilirubin,Total 1.1 mg/dL (0.2-1.3); Blood Urea Nitrogen 27 mg/dL (9-20); Calcium 8.4 mg/dL (8.4-10.2); Carbon Dioxide 24 mmol/L (22-30); Chloride 104 mmol/L (98-107); Estimated CRCL calculation 107 ml/min; Estimated Glomerular Filt Rate > 60; Glucose 157 mg/dL (65-110); Potassium 3.9 mmol/L (3.4-5.0); Sodium 136 mmol/L (137-145)
[2021-05-17 05:40] LABS: D Dimer 5.69 ug/mL (<0.48)
[2021-05-17 06:02] LABS: CRP 14.2 mg/dL (<1.0)
[2021-05-17] MEDS: ENOXAPARIN 40 MG/0.4 ML SYRINGE SUB-Q ×2 (09:40→20:32)
[2021-05-17] MEDS: REMDESIVIR 100 MG/NS 250 ML 100 MG/250 ML BAG 250 MG IVPB (09:40)
[2021-05-17] MEDS: amLODIPine BESYLATE 5 MG TABLET PO (09:41)
[2021-05-17] MEDS: guaiFENesin 12 HR 600 MG TABCR PO ×2 (09:41→20:32)
[2021-05-17] MEDS: ZINC SULFATE 220 MG CAPSULE PO ×2 (09:41→17:49)
[2021-05-17] MEDS: CHOLECALCIFEROL 1,000 UNITS TABLET 1000 UNITS PO (09:41)
[2021-05-17] MEDS: FUROSEMIDE 40 MG TABLET PO (09:41)
[2021-05-17] MEDS: FOLIC ACID 0.4 MG TABLET PO (09:42)
[2021-05-17] MEDS: BARICITINIB 2 MG TABLET 4 MG PO (09:42)
[2021-05-17] MEDS: lisinopriL 20 MG TABLET PO (09:42)
[2021-05-17] MEDS: ASCORBIC ACID 500 MG TABLET 1000 MG PO ×2 (09:42→17:49)
--- NOTE | 2021-05-17 17:37 | PM.IMPN ---
Progress Note: A&P Assessment and Plan (1) Pneumonia due to COVID-19 virus: Code(s): U07.1 - COVID-19; J12.82 - Pneumonia due to coronavirus disease 2019 Status: Acute Assessment and Plan: Continue remdesivir and dexamethasone. CXR reviewed with patient. Also added on baricitinib. CRP was improving but has now worsened continue monitor (2) Hypoxia: Code(s): R09.02 - Hypoxemia Status: Acute Assessment and Plan: Mild hypoxia secondary to diffuse pneumonia on chest x-ray. Continue iv steroids and remdesivir and oxygen and supportive care. Prone positioning With worsening since past [address] to rule out PE Increased Lovenox twice daily (3) Hypertension: Code(s): I10 - Essential (primary) hypertension Status: Acute Assessment and Plan: Blood pressures were reviewed, Bp is slightly high can restart BP medications. (4) Obstructive sleep apnea: Code(s): G47.33 - Obstructive sleep apnea (adult) (pediatric) Status: Acute Assessment and Plan: CPAP will be provided for the patient to use while hospitalized. Additional Plan 05/13/21 Continue remdesivir and dexamethasone Oxygen by nasal cannula, wean as tolerated Went up from 5 to 6 L, discussed with him next step would be high-flow nasal cannula also discussed this we followed by BiPAP, which he is okay with, and this would be followed by intubation, which he will discuss with his before making a decision about. Brief episode of desaaturation 9/9 am when patient over-exerted himself in room; Saturating mid 90s on 6L, encouraged to minimize exertion as much as possible. OK as he is on DVT ppx. Still discussing intubation if needed with family. As of now, still full code. Overall unchanged medical status compared to yesterday. Brief decompensation with overexertion, however saturating well and feeling comfortable on 6L. Still discussing intubation with if that need arises. Will keep full code for now, and he is willing for high flow NC and BiPap if those needs arise. Continue remdesivir and steroids, DVT ppx. 05/15/21 Overall unchanged medical status compared to yesterday. Brief decompensation with overexertion, however saturating well and feeling comfortable on 6L. Still discussing intubation with if that need arises. Will keep full code for now, and he is willing for high flow NC and BiPap if those needs arise. Continue remdesivir and steroids, DVT ppx. 05/16/21 Patient with acute worsening of oxygen requirements now on 60 L 93% Remdesivir Baricitinib Vitamin-C D zinc Dexamethasone b.i.d. High-flow oxygen Patient advised to prone Patient advised to drink Ensure drinks and maintain proper nutrition he is also advised against fast food Patient will discuss code status with his 05/17/2021 Continue remdesivir baricitinib and dexamethasone Check CTA to rule out PE and was negative Increase Lovenox to 40 mg subQ b.i.d. Continue taper oxygen as tolerated Continue prone positioning as previously instructed Subjective Date/time seen: 05/17/21 17:37 Interval history: 65-year-old male with hypertension, the patient is COVID positive. No overnight events. Feeling okay. He is prone positioning as much he can. He feels better today compared to yesterday minimal cough shortness of breath on exertion remains on Airvo Review of Systems Review of Systems: All systems reviewed & are unremarkable except as noted in HPI and below Exam Narrative: General: Well-developed, mildly ill-appearing male proning in bed HEENT: EOMI. Sclerae anicteric. NCAT Neck: Supple. No adenopathy or JVD. Respiratory: Respirations are even and nonlabored and he is speaking in full sentences. Coarse breath sounds bilaterally Cardiovascular: Regular rate and rhythm with S1-S2. Gastrointestinal: Abdomen is soft, nontender, and nondistended with positive bowel sounds. Skin: Warm and moist. Extremitie
[2021-05-18] VITALS (16 sets, daily range): BP systolic 102–140; BP diastolic 54–74; PULSE 47–122; RESP 16–26; TEMP 36.6–37.2; O2SAT 90–99
[2021-05-18] MEDS: ALBUTEROL SULFATE (*SP) INHALER 2 PUFF INHALATION ×4 (03:20→22:30)
[2021-05-18 05:11] LABS: INR 1.1; Prothrombin Time 14.4 Seconds (11.1-14.7)
[2021-05-18 05:22] LABS: CRP 5.2 mg/dL (<1.0)
[2021-05-18 05:28] LABS: D Dimer 4.56 ug/mL (<0.48)
[2021-05-18 08:29] LABS: Alanine Aminotransferase 43 U/L (4-50); Albumin Level 3.5 g/dL (3.5-5.1); Alkaline Phosphatase 76 U/L (38-126); Anion Gap 9 mmol/L (8-16); Aspartate Amino Transferase 36 U/L (17-59); Bilirubin,Total 1.3 mg/dL (0.2-1.3); Blood Urea Nitrogen 32 mg/dL (9-20); Carbon Dioxide 27 mmol/L (22-30); Chloride 102 mmol/L (98-107); Estimated CRCL calculation 96 ml/min; Estimated Glomerular Filt Rate > 60; Glucose 158 mg/dL (65-110); Potassium 4.3 mmol/L (3.4-5.0); Sodium 138 mmol/L (137-145)
[2021-05-18] MEDS: REMDESIVIR 100 MG/NS 250 ML 100 MG/250 ML BAG 250 MG IVPB (10:19)
[2021-05-18 10:20] LABS: Hematocrit 40.2 % (42.0-52.0); Hemoglobin 13.7 g/dL (14.0-18.0); Mean Corpuscular HGB Conc 34.1 g/dl (32-36); Mean Corpuscular Hemoglobin 30.9 pg (26-34); Mean Corpuscular Volume 90.7 fl (80-100); Mean Platelet Volume 10.8 fl (7.4-10.4); Platelet Count Result 354 k/mm3 (150-375); Red Blood Count 4.43 M/mm3 (4.6-6.20); Red Cell Distribution Width 11.9 % (11.5-14.5); White Blood Count 13.9 K/mm3 (4.5-10.0)
[2021-05-18] MEDS: FOLIC ACID 0.4 MG TABLET PO (10:20)
[2021-05-18] MEDS: ZINC SULFATE 220 MG CAPSULE PO ×2 (10:20→17:29)
[2021-05-18] MEDS: ENOXAPARIN 40 MG/0.4 ML SYRINGE SUB-Q ×2 (10:20→20:42)
[2021-05-18] MEDS: lisinopriL 20 MG TABLET PO (10:21)
[2021-05-18] MEDS: BARICITINIB 2 MG TABLET 4 MG PO (10:21)
[2021-05-18] MEDS: ASCORBIC ACID 500 MG TABLET 1000 MG PO ×2 (10:21→17:29)
[2021-05-18] MEDS: guaiFENesin 12 HR 600 MG TABCR PO ×2 (10:22→20:39)
[2021-05-18] MEDS: FUROSEMIDE 40 MG TABLET PO (10:22)
[2021-05-18] MEDS: amLODIPine BESYLATE 5 MG TABLET PO (10:22)
[2021-05-18] MEDS: CHOLECALCIFEROL 1,000 UNITS TABLET 1000 UNITS PO (10:23)
[2021-05-18 11:30] LABS: Lymphocytes Absolute Manual 1.25 K/mm3 (1.1-4.5); Monocytes Absolute Manual 0.55 K/mm3 (0.1-0.90); Monocytes Percent Manual 4 % (3-9); Neutrophils Percent Manual 87 % (46-73); Platelet Estimate Adequate (Adequate); Total Cells Counted 100
[2021-05-18 11:32] LABS: Atypical Lymphocytes Present
--- NOTE | 2021-05-18 16:41 | PM.IMPN ---
Progress Note: A&P Assessment and Plan (1) Pneumonia due to COVID-19 virus: Code(s): U07.1 - COVID-19; J12.82 - Pneumonia due to coronavirus disease 2019 Status: Acute Assessment and Plan: Continue remdesivir and dexamethasone. CXR reviewed with patient. Also added on baricitinib. CRP was improving but has now worsened continue monitor (2) Hypoxia: Code(s): R09.02 - Hypoxemia Status: Acute Assessment and Plan: Mild hypoxia secondary to diffuse pneumonia on chest x-ray. Continue iv steroids and remdesivir and oxygen and supportive care. Prone positioning With worsening since past [address] to rule out PE Increased Lovenox twice daily (3) Hypertension: Code(s): I10 - Essential (primary) hypertension Status: Acute Assessment and Plan: Blood pressures were reviewed, Bp is slightly high can restart BP medications. (4) Obstructive sleep apnea: Code(s): G47.33 - Obstructive sleep apnea (adult) (pediatric) Status: Acute Assessment and Plan: CPAP will be provided for the patient to use while hospitalized. Additional Plan 05/13/21 Continue remdesivir and dexamethasone Oxygen by nasal cannula, wean as tolerated Went up from 5 to 6 L, discussed with him next step would be high-flow nasal cannula also discussed this we followed by BiPAP, which he is okay with, and this would be followed by intubation, which he will discuss with his before making a decision about. Brief episode of desaaturation 9/9 am when patient over-exerted himself in room; Saturating mid 90s on 6L, encouraged to minimize exertion as much as possible. OK as he is on DVT ppx. Still discussing intubation if needed with family. As of now, still full code. Overall unchanged medical status compared to yesterday. Brief decompensation with overexertion, however saturating well and feeling comfortable on 6L. Still discussing intubation with if that need arises. Will keep full code for now, and he is willing for high flow NC and BiPap if those needs arise. Continue remdesivir and steroids, DVT ppx. 05/15/21 Overall unchanged medical status compared to yesterday. Brief decompensation with overexertion, however saturating well and feeling comfortable on 6L. Still discussing intubation with if that need arises. Will keep full code for now, and he is willing for high flow NC and BiPap if those needs arise. Continue remdesivir and steroids, DVT ppx. 05/16/21 Patient with acute worsening of oxygen requirements now on 60 L 93% Remdesivir Baricitinib Vitamin-C D zinc Dexamethasone b.i.d. High-flow oxygen Patient advised to prone Patient advised to drink Ensure drinks and maintain proper nutrition he is also advised against fast food Patient will discuss code status with his 05/17/2021 Continue remdesivir baricitinib and dexamethasone Check CTA to rule out PE and was negative Increase Lovenox to 40 mg subQ b.i.d. Continue taper oxygen as tolerated Continue prone positioning as previously instructed 05/18 interval history, patient states feeling much better not a short of breath is off CPAP on high-flow nasal cannula, patient been afebrile for 48 hours, patient is being treated dexamethasone, remdesivir, Baricitinib, patient encouraged to sleep in prone position as much as possible Subjective Date/time seen: 05/18/21 16:41 Interval history: 65-year-old male with hypertension, the patient is COVID positive. No overnight events. Feeling okay. He is prone positioning as much he can. He feels better today compared to yesterday minimal cough shortness of breath on exertion remains on Airvo 05/18 interval history, patient states feeling much better not a short of breath is off CPAP on high-flow nasal cannula, patient been afebrile for 48 hours, patient is being treated dexamethasone, remdesivir, Baricitinib, patient encouraged to sleep in prone position as much as possible
[2021-05-19] VITALS (7 sets, daily range): BP systolic 98–119; BP diastolic 59–67; PULSE 49–102; RESP 16; TEMP 36.6–36.9; O2SAT 94–97
[2021-05-19] MEDS: ALBUTEROL SULFATE (*SP) INHALER 2 PUFF INHALATION ×3 (02:34→20:50)
[2021-05-19 05:55] LABS: INR 1.1; Prothrombin Time 13.8 Seconds (11.1-14.7)
[2021-05-19 05:58] LABS: D Dimer 2.95 ug/mL (<0.48)
[2021-05-19 06:17] LABS: CRP 2.9 mg/dL (<1.0)
[2021-05-19 08:35] LABS: Alanine Aminotransferase 42 U/L (4-50); Albumin Level 3.3 g/dL (3.5-5.1); Alkaline Phosphatase 66 U/L (38-126); Anion Gap 8 mmol/L (8-16); Aspartate Amino Transferase 31 U/L (17-59); Bilirubin,Total 1.2 mg/dL (0.2-1.3); Blood Urea Nitrogen 37 mg/dL (9-20); Calcium 8.7 mg/dL (8.4-10.2); Carbon Dioxide 26 mmol/L (22-30); Chloride 104 mmol/L (98-107); Estimated CRCL calculation 85 ml/min; Estimated Glomerular Filt Rate > 60; Glucose 120 mg/dL (65-110); Sodium 138 mmol/L (137-145)
[2021-05-19] MEDS: amLODIPine BESYLATE 5 MG TABLET PO (09:59)
[2021-05-19] MEDS: ASCORBIC ACID 500 MG TABLET 1000 MG PO ×2 (10:00→18:58)
[2021-05-19] MEDS: CHOLECALCIFEROL 1,000 UNITS TABLET 1000 UNITS PO (10:01)
[2021-05-19] MEDS: ENOXAPARIN 40 MG/0.4 ML SYRINGE SUB-Q ×2 (10:01→21:23)
[2021-05-19] MEDS: FOLIC ACID 0.4 MG TABLET PO (10:01)
[2021-05-19] MEDS: BARICITINIB 2 MG TABLET 4 MG PO (10:01)
[2021-05-19] MEDS: FUROSEMIDE 40 MG TABLET PO (10:02)
[2021-05-19] MEDS: ZINC SULFATE 220 MG CAPSULE PO ×2 (10:02→18:58)
[2021-05-19] MEDS: lisinopriL 20 MG TABLET PO (10:02)
[2021-05-19] MEDS: guaiFENesin 12 HR 600 MG TABCR PO ×2 (10:02→21:23)
[2021-05-19] MEDS: REMDESIVIR 100 MG/NS 250 ML 100 MG/250 ML BAG 250 MG IVPB (10:03)
[2021-05-19 10:34] LABS: Basophils Percent Auto 0.2 % (0.2-1.2); Eosinophils Absolute Auto 0.1 K/mm3 (0-0.3); Eosinophils Percent Auto 0.7 % (0-4.4); Hematocrit 41.5 % (42.0-52.0); Hemoglobin 14.3 g/dL (14.0-18.0); Immature Granulocyte Absolute 0.34 K/mm3 (0.00-0.031); Immature Granulocyte Percent A 2.1 % (0-0.5); Lymphocytes Absolute Auto 1.18 K/mm3 (0.9-3.2); Lymphocytes Percent Auto 7.3 % (18.3-44.2); Mean Corpuscular HGB Conc 34.5 g/dl (32-36); Mean Corpuscular Hemoglobin 31.2 pg (26-34); Mean Corpuscular Volume 90.6 fl (80-100); Mean Platelet Volume 10.7 fl (7.4-10.4); Monocytes Absolute Auto 0.8 K/mm3 (0.1-0.6); Neutrophils Absolute Auto 13.8 K/mm3 (1.3-6.7); Neutrophils Percent Auto 84.7 % (45.5-73.1); Platelet Count Result 395 k/mm3 (150-375); Red Blood Count 4.58 M/mm3 (4.6-6.20); White Blood Count 16.3 K/mm3 (4.5-10.0)
--- NOTE | 2021-05-19 18:27 | PM.IMPN ---
Progress Note: A&P Assessment and Plan (1) Pneumonia due to COVID-19 virus: Code(s): U07.1 - COVID-19; J12.82 - Pneumonia due to coronavirus disease 2019 Status: Acute Assessment and Plan: Continue remdesivir and dexamethasone. CXR reviewed with patient. Also added on baricitinib. CRP was improving but has now worsened continue monitor (2) Hypoxia: Code(s): R09.02 - Hypoxemia Status: Acute Assessment and Plan: Mild hypoxia secondary to diffuse pneumonia on chest x-ray. Continue iv steroids and remdesivir and oxygen and supportive care. Prone positioning With worsening since past [address] to rule out PE Increased Lovenox twice daily (3) Hypertension: Code(s): I10 - Essential (primary) hypertension Status: Acute Assessment and Plan: Blood pressures were reviewed, Bp is slightly high can restart BP medications. (4) Obstructive sleep apnea: Code(s): G47.33 - Obstructive sleep apnea (adult) (pediatric) Status: Acute Assessment and Plan: CPAP will be provided for the patient to use while hospitalized. Additional Plan 05/13/21 Continue remdesivir and dexamethasone Oxygen by nasal cannula, wean as tolerated Went up from 5 to 6 L, discussed with him next step would be high-flow nasal cannula also discussed this we followed by BiPAP, which he is okay with, and this would be followed by intubation, which he will discuss with his before making a decision about. Brief episode of desaaturation 9/9 am when patient over-exerted himself in room; Saturating mid 90s on 6L, encouraged to minimize exertion as much as possible. OK as he is on DVT ppx. Still discussing intubation if needed with family. As of now, still full code. Overall unchanged medical status compared to yesterday. Brief decompensation with overexertion, however saturating well and feeling comfortable on 6L. Still discussing intubation with if that need arises. Will keep full code for now, and he is willing for high flow NC and BiPap if those needs arise. Continue remdesivir and steroids, DVT ppx. 05/15/21 Overall unchanged medical status compared to yesterday. Brief decompensation with overexertion, however saturating well and feeling comfortable on 6L. Still discussing intubation with if that need arises. Will keep full code for now, and he is willing for high flow NC and BiPap if those needs arise. Continue remdesivir and steroids, DVT ppx. 05/16/21 Patient with acute worsening of oxygen requirements now on 60 L 93% Remdesivir Baricitinib Vitamin-C D zinc Dexamethasone b.i.d. High-flow oxygen Patient advised to prone Patient advised to drink Ensure drinks and maintain proper nutrition he is also advised against fast food Patient will discuss code status with his 05/17/2021 Continue remdesivir baricitinib and dexamethasone Check CTA to rule out PE and was negative Increase Lovenox to 40 mg subQ b.i.d. Continue taper oxygen as tolerated Continue prone positioning as previously instructed 05/18 interval history, patient states feeling much better not a short of breath is off CPAP on high-flow nasal cannula, patient been afebrile for 48 hours, patient is being treated dexamethasone, remdesivir, Baricitinib, patient encouraged to sleep in prone position as much as possible. 05/19 interval history patient is sitting in the chair states feeling much not a short of breath, was able to participate in physical therapy somewhat, patient states he does sleep prone position, will get the patient and spirometer, patient requiring 7 to 8 of oxygen will continue present management, once patient requiring less than 6 L may do the discharge planning Subjective Date/time seen: 05/19/21 18:27 Interval history: 65-year-old male with hypertension, the patient is COVID positive. No overnight events. Feeling okay. He is prone positioning as much he can. He feels better today compare
[2021-05-20] VITALS (19 sets, daily range): BP systolic 98–127; BP diastolic 46–79; PULSE 53–69; RESP 16–20; TEMP 36.4–36.8; O2SAT 87–97
[2021-05-20] MEDS: ALBUTEROL SULFATE (*SP) INHALER 2 PUFF INHALATION ×4 (02:44→22:03)
[2021-05-20 05:08] LABS: Basophils Percent Auto 0.2 % (0.2-1.2); Eosinophils Absolute Auto 0.2 K/mm3 (0-0.3); Eosinophils Percent Auto 2.3 % (0-4.4); Hematocrit 37.7 % (42.0-52.0); Hemoglobin 12.9 g/dL (14.0-18.0); Immature Granulocyte Percent A 3.6 % (0-0.5); Lymphocytes Absolute Auto 1.16 K/mm3 (0.9-3.2); Lymphocytes Percent Auto 13.8 % (18.3-44.2); Mean Corpuscular HGB Conc 34.2 g/dl (32-36); Mean Corpuscular Hemoglobin 31.7 pg (26-34); Mean Corpuscular Volume 92.6 fl (80-100); Mean Platelet Volume 10.6 fl (7.4-10.4); Monocytes Absolute Auto 0.6 K/mm3 (0.1-0.6); Monocytes Percent Auto 7.1 % (2.6-8.5); Neutrophils Absolute Auto 6.2 K/mm3 (1.3-6.7); Platelet Count Result 233 k/mm3 (150-375); Red Blood Count 4.07 M/mm3 (4.6-6.20); Red Cell Distribution Width 11.9 % (11.5-14.5); White Blood Count 8.4 K/mm3 (4.5-10.0)
[2021-05-20 05:16] LABS: Prothrombin Time 13.4 Seconds (11.1-14.7)
[2021-05-20 05:38] LABS: Alanine Aminotransferase 44 U/L (4-50); Albumin Level 2.9 g/dL (3.5-5.1); Alkaline Phosphatase 63 U/L (38-126); Anion Gap 3 mmol/L (8-16); Aspartate Amino Transferase 40 U/L (17-59); Bilirubin,Total 1.6 mg/dL (0.2-1.3); Blood Urea Nitrogen 34 mg/dL (9-20); Calcium 8.1 mg/dL (8.4-10.2); Carbon Dioxide 30 mmol/L (22-30); Chloride 103 mmol/L (98-107); Estimated CRCL calculation 78 ml/min; Estimated Glomerular Filt Rate > 60; Glucose 95 mg/dL (65-110); Potassium 4.2 mmol/L (3.4-5.0); Sodium 136 mmol/L (137-145)
[2021-05-20] MEDS: lisinopriL 20 MG TABLET PO (09:06)
[2021-05-20] MEDS: amLODIPine BESYLATE 5 MG TABLET PO (09:06)
[2021-05-20] MEDS: FOLIC ACID 0.4 MG TABLET PO (09:06)
[2021-05-20] MEDS: BARICITINIB 2 MG TABLET 4 MG PO (09:06)
[2021-05-20] MEDS: ENOXAPARIN 40 MG/0.4 ML SYRINGE SUB-Q ×2 (09:06→20:33)
[2021-05-20] MEDS: ZINC SULFATE 220 MG CAPSULE PO ×2 (09:06→17:17)
[2021-05-20] MEDS: ASCORBIC ACID 500 MG TABLET 1000 MG PO ×2 (09:06→17:17)
[2021-05-20] MEDS: FUROSEMIDE 40 MG TABLET PO (09:06)
[2021-05-20] MEDS: guaiFENesin 12 HR 600 MG TABCR PO ×2 (09:06→20:33)
[2021-05-20] MEDS: CHOLECALCIFEROL 1,000 UNITS TABLET 1000 UNITS PO (09:06)
[2021-05-20] MEDS: REMDESIVIR 100 MG/NS 250 ML 100 MG/250 ML BAG 250 MG IVPB (12:08)
--- NOTE | 2021-05-20 13:38 | PCDIET ---
Nutrition Follow-Up Complete: Nutrition Diagnosis: Suboptimal oral intake related to decreased appetite as evidenced by patient statements with documented intake of 47% of recorded meals. Nutrition Goal: Patient to consume 50% of meals/supplements or greater. Goal in progress. Patient now consuming 100% of meals and reports good appetite. Does not think he has received Enlive but would like to give it a try next meal. Recommend continuing heart healthy diet with Ensure Enlive 1x daily. Last recorded weight is 105.2 kg which is down from last review. Bowel Motility: Last documented BM on 05/18/21 x 1. Labs Reviewed: RBC (4.07), Hgb (12.9), Hct (37.7), BUN (34), Na (136), Alb (2.9), Samy Ca (8.98) Meds Noted: Proventil, Norvasc, Vitamin C, Olumiant, Folic Acid, Lasix, Prinivil, Vitamin D, Zinc Sulfate Additional Notes: No documented skin breakdown. Will continue to monitor with same goal. Nutrition Monitoring and Evaluation: Follow up every 7 days.
--- NOTE | 2021-05-20 15:55 | HOMEO2EVAL ---
Evaluation was performed at [facility] Home Oxygen Evaluation RC: Home Oxygen (O2) Evaluation Start: 05/20/21 14:18 Freq: ONCE Status: Active Protocol: RPE Activity Type Activity Date Activity User E-Sign Co-Sign Detail Recorded Client Recorded Date Recorded By Document 05/20/21 14:45 MOI [email or web address] 05/20/21 15:55 MOI Document 05/20/21 14:46 [email or web address] [email or web address] 05/20/21 15:55 MOI Document 05/20/21 14:47 [email or web address] [email or web address] 05/20/21 15:55 MOI Document 05/20/21 14:48 [email or web address] [email or web address] 05/20/21 15:55 MOI Document 05/20/21 14:50 [email or web address] [email or web address] 05/20/21 15:55 MOI Document 05/20/21 14:55 MOI [email or web address] 05/20/21 15:55 MOI 05/20/21 05/20/21 05/20/21 14:45 14:46 14:47 Home O2 Evaluation Test Phase Resting Resting Resting Oxygen Delivery Room Air Nasal Cannula Nasal Cannula Oxygen Flow Rate (L/min) 1 2 Pulse Oximetry (90-100 %) 87 L 87 L 87 L Home Oxygen Evaluation Comments Treatment Charges O2 Evaluation - Inpatient 05/20/21 05/20/21 05/20/21 14:48 14:50 14:55 Home O2 Evaluation Test Phase Resting Exercise Resting Oxygen Delivery Nasal Cannula Nasal Cannula Nasal Cannula Oxygen Flow Rate (L/min) 3 3 3 Pulse Oximetry (90-100 %) 93 95 95 Home Oxygen Evaluation Comments Pt requires 3 L O2 at rest and with exertion Treatment Charges
--- NOTE | 2021-05-20 15:59 | PCRCNOTE ---
Home O2 eval completed. Pt requires 3 L rest and exertion. [facility] Will [facility] to pt room for discharge home.
--- NOTE | 2021-05-20 17:29 | PM.IMPN ---
Progress Note: A&P Assessment and Plan (1) Pneumonia due to COVID-19 virus: Code(s): U07.1 - COVID-19; J12.82 - Pneumonia due to coronavirus disease 2019 Status: Acute Assessment and Plan: Continue remdesivir and dexamethasone. CXR reviewed with patient. Also added on baricitinib. CRP was improving but has now worsened continue monitor (2) Hypoxia: Code(s): R09.02 - Hypoxemia Status: Acute Assessment and Plan: Mild hypoxia secondary to diffuse pneumonia on chest x-ray. Continue iv steroids and remdesivir and oxygen and supportive care. Prone positioning With worsening since past [address] to rule out PE Increased Lovenox twice daily (3) Hypertension: Code(s): I10 - Essential (primary) hypertension Status: Acute Assessment and Plan: Blood pressures were reviewed, Bp is slightly high can restart BP medications. (4) Obstructive sleep apnea: Code(s): G47.33 - Obstructive sleep apnea (adult) (pediatric) Status: Acute Assessment and Plan: CPAP will be provided for the patient to use while hospitalized. Additional Plan 05/13/21 Continue remdesivir and dexamethasone Oxygen by nasal cannula, wean as tolerated Went up from 5 to 6 L, discussed with him next step would be high-flow nasal cannula also discussed this we followed by BiPAP, which he is okay with, and this would be followed by intubation, which he will discuss with his before making a decision about. Brief episode of desaaturation 9/9 am when patient over-exerted himself in room; Saturating mid 90s on 6L, encouraged to minimize exertion as much as possible. OK as he is on DVT ppx. Still discussing intubation if needed with family. As of now, still full code. Overall unchanged medical status compared to yesterday. Brief decompensation with overexertion, however saturating well and feeling comfortable on 6L. Still discussing intubation with if that need arises. Will keep full code for now, and he is willing for high flow NC and BiPap if those needs arise. Continue remdesivir and steroids, DVT ppx. 05/15/21 Overall unchanged medical status compared to yesterday. Brief decompensation with overexertion, however saturating well and feeling comfortable on 6L. Still discussing intubation with if that need arises. Will keep full code for now, and he is willing for high flow NC and BiPap if those needs arise. Continue remdesivir and steroids, DVT ppx. 05/16/21 Patient with acute worsening of oxygen requirements now on 60 L 93% Remdesivir Baricitinib Vitamin-C D zinc Dexamethasone b.i.d. High-flow oxygen Patient advised to prone Patient advised to drink Ensure drinks and maintain proper nutrition he is also advised against fast food Patient will discuss code status with his 05/17/2021 Continue remdesivir baricitinib and dexamethasone Check CTA to rule out PE and was negative Increase Lovenox to 40 mg subQ b.i.d. Continue taper oxygen as tolerated Continue prone positioning as previously instructed 65-year-old male with hypertension, the patient is COVID positive. No overnight events. Feeling okay. He is prone positioning as much he can. He feels better today compared to yesterday minimal cough shortness of breath on exertion remains on Airvo 05/18 interval history, patient states feeling much better not a short of breath is off CPAP on high-flow nasal cannula, patient been afebrile for 48 hours, patient is being treated dexamethasone, remdesivir, Baricitinib, patient encouraged to sleep in prone position as much as possible 05/19 interval history patient is sitting in the chair states feeling much not a short of breath, was able to participate in physical therapy somewhat, patient states he does sleep prone position, will get the patient and spirometer, patient requiring 7 to 8 of oxygen will continue present management, once patient requiring less than 6 L may do the discharge
[2021-05-20 19:52] LABS: SARS-CoV-2 RNA PCR Positive
[2021-05-21 04:22] VITALS: BP 130/78; PULSE 60; RESP 20; TEMP 36.4; O2SAT 96
[2021-05-21 07:17] VITALS: BP 117/78; PULSE 77; RESP 20; TEMP 36.4; O2SAT 95
[2021-05-21 08:00] VITALS: O2SAT 94
[2021-05-21] MEDS: guaiFENesin 12 HR 600 MG TABCR PO (08:12)
[2021-05-21] MEDS: BARICITINIB 2 MG TABLET 4 MG PO (08:12)
[2021-05-21] MEDS: ENOXAPARIN 40 MG/0.4 ML SYRINGE SUB-Q (08:12)
[2021-05-21] MEDS: FOLIC ACID 0.4 MG TABLET PO (08:12)
[2021-05-21] MEDS: lisinopriL 20 MG TABLET PO (08:12)
[2021-05-21] MEDS: FUROSEMIDE 40 MG TABLET PO (08:12)
[2021-05-21] MEDS: CHOLECALCIFEROL 1,000 UNITS TABLET 1000 UNITS PO (08:12)
[2021-05-21] MEDS: ZINC SULFATE 220 MG CAPSULE PO (08:12)
[2021-05-21] MEDS: ASCORBIC ACID 500 MG TABLET 1000 MG PO (08:12)
[2021-05-21] MEDS: amLODIPine BESYLATE 5 MG TABLET PO (08:12)
[2021-05-21 08:43] LABS: Basophils Percent Auto 0.2 % (0.2-1.2); Eosinophils Absolute Auto 0.2 K/mm3 (0-0.3); Eosinophils Percent Auto 2.1 % (0-4.4); Hematocrit 38.1 % (42.0-52.0); Hemoglobin 13.1 g/dL (14.0-18.0); Immature Granulocyte Absolute 0.31 K/mm3 (0.00-0.031); Immature Granulocyte Percent A 3.2 % (0-0.5); Lymphocytes Absolute Auto 1.36 K/mm3 (0.9-3.2); Lymphocytes Percent Auto 14.3 % (18.3-44.2); Mean Corpuscular HGB Conc 34.4 g/dl (32-36); Mean Corpuscular Hemoglobin 31.5 pg (26-34); Mean Corpuscular Volume 91.6 fl (80-100); Mean Platelet Volume 10.5 fl (7.4-10.4); Monocytes Absolute Auto 0.7 K/mm3 (0.1-0.6); Monocytes Percent Auto 6.8 % (2.6-8.5); Neutrophils Percent Auto 73.4 % (45.5-73.1); Platelet Count Result 276 k/mm3 (150-375); Red Blood Count 4.16 M/mm3 (4.6-6.20); Red Cell Distribution Width 11.9 % (11.5-14.5); White Blood Count 9.5 K/mm3 (4.5-10.0)
[2021-05-21] MEDS: ALBUTEROL SULFATE (*SP) INHALER 2 PUFF INHALATION (09:52)
[2021-05-21 09:53] VITALS: O2SAT 94
[2021-05-21 10:24] LABS: Alanine Aminotransferase 53 U/L (4-50); Estimated CRCL calculation 105 ml/min; Estimated Glomerular Filt Rate > 60
--- NOTE | 2021-05-21 11:41 | PM.DS ---
DS: Admitting Diagnosis Discharge Date 05/21/2021 Admitting Diagnosis Shortness of breath positive for COVID-19 DS: Discharge Diagnosis Discharge Diagnosis (1) Pneumonia due to COVID-19 virus: Code(s): U07.1 - COVID-19; J12.82 - Pneumonia due to coronavirus disease 2019 Status: Acute Assessment and Plan: Continue remdesivir and dexamethasone. CXR reviewed with patient. Also added on baricitinib. CRP was improving but has now worsened continue monitor (2) Hypoxia: Code(s): R09.02 - Hypoxemia Status: Acute Assessment and Plan: Mild hypoxia secondary to diffuse pneumonia on chest x-ray. Continue iv steroids and remdesivir and oxygen and supportive care. Prone positioning With worsening since past [address] to rule out PE Increased Lovenox twice daily (3) Hypertension: Code(s): I10 - Essential (primary) hypertension Status: Acute Assessment and Plan: Blood pressures were reviewed, Bp is slightly high can restart BP medications. (4) Obstructive sleep apnea: Code(s): G47.33 - Obstructive sleep apnea (adult) (pediatric) Status: Acute Assessment and Plan: CPAP will be provided for the patient to use while hospitalized. DS: Summary Hospital Course Reason for hospitalization: Chief Complaint: COVID positive, weak, diarrhea. <Lolis Tirado PA-C - Last Filed: 05/10/21 23:30> Narrative: This is a pleasant 65-year-old male with hypertension who presented to the emergency department earlier today via private vehicle from home for evaluation of weakness and diarrhea, the patient is COVID positive. He tested positive for COVID 19 on 05/03/2021 and has had symptoms to include fever, body aches, nausea with poor oral intake, diarrhea, mild cough, and shortness of breath. The last couple of days he has felt quite weak due to ongoing diarrhea and poor oral intake due to severe nausea. On arrival to the emergency department he was mildly hypoxic with an SpO2 of 89% on room air and his chest x-ray showed diffuse lung disease consistent with COVID pneumonia. He is being admitted in this setting. At the time my evaluation he reports feeling somewhat better with oxygen and IV fluids. He continues to have low-grade fevers. No hyposmia or dysgeusia, otalgia, odynophagia, chest pain, pleuritic pain, or vomiting. He did not receive a COVID vaccination. Hospital Course: 05/13/21 Continue remdesivir and dexamethasone Oxygen by nasal cannula, wean as tolerated Went up from 5 to 6 L, discussed with him next step would be high-flow nasal cannula also discussed this we followed by BiPAP, which he is okay with, and this would be followed by intubation, which he will discuss with his before making a decision about. Brief episode of desaaturation 05/13 am when patient over-exerted himself in room; Saturating mid 90s on 6L, encouraged to minimize exertion as much as possible. OK as he is on DVT ppx. Still discussing intubation if needed with family. As of now, still full code. Overall unchanged medical status compared to yesterday. Brief decompensation with overexertion, however saturating well and feeling comfortable on 6L. Still discussing intubation with if that need arises. Will keep full code for now, and he is willing for high flow NC and BiPap if those needs arise. Continue remdesivir and steroids, DVT ppx. 05/15/21 Overall unchanged medical status compared to yesterday. Brief decompensation with overexertion, however saturating well and feeling comfortable on 6L. Still discussing intubation with if that need arises. Will keep full code for now, and he is willing for high flow NC and BiPap if those needs arise. Continue remdesivir and steroids, DVT ppx. 05/16/21 Patient with acute worsening of oxygen requirements now on 60 L 93% Remdesivir Baricitinib Vitamin-C D zinc Dexamethasone b.i.d. High-flow oxygen Patient advised to prone Patient advised to aisha
== END 2021-05-21 12:25 | disposition home or self-care (01) | DRG 177 ==
LOC: ANHED 18:01 → ANH3MEDSUR 18:23 → ANHIMU 05-14 04:36
PROVIDERS: Hospitalist; Internal Medicine; Physician Assistant; Admitting Provider Family Medicine; Emergency Provider Emergency Medicine; PCP Internal Medicine; Visit Provider Family Medicine
DX: U07.1 COVID-19 (principal); J12.82 Pneumonia due to coronavirus disease 2019; J96.01 Acute respiratory failure with hypoxia; G47.33 Obstructive sleep apnea (adult) (pediatric); I10 Essential (primary) hypertension; R19.7 Diarrhea, unspecified
CPT/HCPCS: 36415; 36600; 71045; 71275; 80053; 81001; 82375; 82565; 82728; 82805; 83050; 83615; 83735; 84100; 84460; 85025; 85027; 85380; 85610; 86140; 93005; 94002; 94003; 94618; 94640; 94667; 96361; 96365; 96375; 97110; 97116; 97161; 97165; 97530; 97535; 99285; A9270; C9803; J1100; J1650; J2405; J7030; Q9967; U0003; U0005

== ENCOUNTER 2022-11-12 16:37 | Emergency (ER) | payer BC, SELFPAY ==
[2022-11-12 17:00] VITALS: BP 122/71; PULSE 63; RESP 16; TEMP 36.4; O2SAT 99
--- NOTE | 2022-11-12 17:08 | ED.EYEPROB ---
HPI - Eye Problem General Chief complaint: Eye Problems Stated complaint: left eye pain Time Seen by Provider: 11/12/22 17:09 Source: patient Mode of arrival: ambulatory Limitations: no limitations History of Present Illness HPI Narrative: 67-year-old male presents with complaint of left eye drainage, irritation, redness for 2 days. Symptoms getting progressively worse. No vision changes. Denies injury. Does not were contacts. Reports similar symptoms the last time he had bacterial conjunctivitis. All systems reviewed and negative except as noted above. Related Data Home Medications Medication Instructions Recorded Confirmed amlodipine 5 mg tablet 5 mg PO DAILY 11/12/22 11/12/22 folic acid 1 mg tablet 1 mg PO DAILY 11/12/22 11/12/22 lisinopril 20 1 tablet PO DAILY 11/12/22 11/12/22 mg-hydrochlorothiazide 12.5 mg tablet Allergies Allergy/AdvReac Type Severity Reaction Status Date / Time No Known Allergies Allergy Mild Verified 11/12/22 16:47 Review of Systems Review of Systems: CONSTITUTIONAL: Denies fever, chills, or sweats. EYES: Denies visual changes. Reports L eye redness, discharge. ENT: Denies rhinorrhea, congestion, sore throat, or otalgia. CARDIOVASCULAR: Denies chest pain, palpitations, or edema. RESPIRATORY: Denies cough or dyspnea. GASTROINTESTINAL: Denies abdominal pain, nausea, vomiting, or diarrhea. GENITOURINARY: Denies dysuria or hematuria. SKIN: Denies rash or itching. MUSCULOSKELETAL: Denies back pain, joint pain, or myalgia. NEUROLOGIC: Denies headache, numbness, or weakness. PSYCHIATRIC: Denies anxiety or depression. All other systems reviewed are negative, except as documented in HPI. [facility] Past Medical History Medical History (Updated 11/12/22 @ 17:16 by Mary Wheat NP) Hypertension Obstructive sleep apnea Surgical History Surgical History (Updated 05/10/21 @ 23:21 by Lolis Tirado PA-C) History of inguinal hernia repair Family History Family History (Updated 05/10/21 @ 23:21 by Lolis Tirado PA-C) Other Hypertension Social History Social History (Updated 05/10/21 @ 23:22 by Lolis Tirado PA-C) Social History: The patient is and lives with his in [place]. They have grown children without significant medical problems. 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 Lifelong nonsmoker. No alcohol or illicit substance abuse. He designates his , Fadumo Sevilla, as his surrogate decision maker and he wishes to be a full code. Spiritual care concerns: No Comments At time of signature, agree with nursing past medical, surgical, social and family history. There is no relevant family history pertinent to the presenting complaint. Exam Narrative: GENERAL: This is a well-nourished, well-developed patient, in no apparent distress. HEAD: normocephalic, atraumatic. EYES: PERRL. erythema to L conjunctiva and sclera. white thick drainage. EARS: External ears normal NOSE: External nose normal NECK: Neck supple, non-tender without lymphadenopathy, masses or thyromegaly. CARDIOVASCULAR: Regular rate and rhythm without murmurs, gallops, or rubs. RESPIRATORY: Clear to auscultation. Breath sounds equal bilaterally. No wheezes, rales, or rhonchi. SKIN: warm, Dry, intact with no suspicious lesions or rash, good texture and turgor. NEURO: awake, alert, and oriented to person, place and time. There were no obvious focal neurologic abnormalities. EXTREMITIES: No joint tenderness, effusion, or edema noted. Course Course Level of Care: Express Care Visit Vital Signs Vital signs: Vital Signs Temperature 36.4 C 11/12/22 17:00 Pulse Rate 63 11/12/22 17:00 Respiratory Rate 16 11/12/22 17:00 Blood Pressure 122/71 11/12/22 17:00 Pulse Oximetry 99 11/12/22 17:00 Oxygen Delivery Room Air 11/12/22 17:00 Temperature 36.4 C 11/12/22 17:00 Pulse Rate 63 11/12/22 17:00 Respiratory Rate 16
== END 2022-11-12 17:24 | disposition home or self-care (01) ==
PROVIDERS: Emergency Provider Nurse Practitioner Family; PCP Internal Medicine
DX: H10.32 Unspecified acute conjunctivitis, left eye (principal); I10 Essential (primary) hypertension
CPT/HCPCS: 99213; G0463